=== PATIENT | female | born 1990 | race Caucasian/White ===

== ENCOUNTER → 2020-03-22 13:34 | Outpatient (BNVA) | payer MEDICAID, SELFPAY | PROVIDERS: Family Provider Family Medicine; PCP Family Medicine; Visit Provider Obstetrics & Gynecology | DX: Z34.80 Encounter for supervision of other normal pregnancy, unspecified trimester (principal) | CPT/HCPCS: 80053; 80307; 82950; 84315; 85027; 86592; 86762; 86803; 86850; 86900; 87340; 87806 ==

== ENCOUNTER → 2020-04-12 10:23 | Outpatient (BNVA) | payer MEDICAID, SELFPAY | PROVIDERS: Family Provider Family Medicine; PCP Family Medicine; Visit Provider Obstetrics & Gynecology | DX: O99.013 Anemia complicating pregnancy, third trimester (principal); O99.330 Smoking (tobacco) complicating pregnancy, unspecified trimester; Z04.89 Encounter for examination and observation for other specified reasons | CPT/HCPCS: 84315; 85027 ==

== ENCOUNTER 2020-04-26 11:30 | Observation (INO) | payer MEDICAID, SELFPAY ==
[2020-04-26 11:53] VITALS: BMI 40.4
[2020-04-26 11:58] VITALS: RESP 18; TEMP 37.1
[2020-04-26] MEDS: lactated ringers 1,000 ML 999 ML IV (12:15)
[2020-04-26] MEDS: lactated ringers 1,000 ML 125 ML IV (13:19)
[2020-04-26] MEDS: NIFEdipine 10 mg Capsule 30 MG PO (14:32)
[2020-04-26 15:08] VITALS: RESP 16
[2020-04-26 16:07] VITALS: BP 110/54; PULSE 85
--- NOTE | 2020-04-26 16:34 | PM.PN ---
Subjective Subjective: Interval history: 29-year-old 3 para 0-0-2-0 at 30 weeks and 5 days who presented to labor and delivery from clinic for further evaluation of contractions. She was monitored on labor and delivery and during this time made no cervical change and cervix was closed thick and high but soft. She initially had regular contractions every 2 to 3 minutes with spaced out to every 5 to 7 minutes with IV fluid hydration. As she had persistent contractions despite absence of cervical change was given a single dose of Procardia and with this her contractions spaced out to a few an hour and she felt much better. 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 Follow-up in clinic as scheduled. 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
[2020-04-26 16:37] VITALS: BP 103/54; PULSE 78
--- NOTE | 2020-04-26 16:49 | PM.ACPR ---
Procedure/Consent Procedure Narrative: NONSTRESS TEST: Place of test: [facility] [place]-L&D Indication: 29-year-old 3 para 0-0-2-0 at 30 weeks and 5 days, abdominal pain- labor Date and time of test: 04/26/2020, 3:45 PM. Baseline: 135 Variability: Moderate variability Accelerations: Accelerations present Decelerations: No decelerations Tocometry: Irritability, occasional contractions INTERPRETATION: NST reactive, continue kick counts
[2020-04-26 17:40] VITALS: BP 103/54; PULSE 78; RESP 16; TEMP 37.1; O2SAT 96
--- NOTE | 2020-04-29 10:40 | PC.RESP ---
Smoking Cessation information and a schedule of classes sent to patient.
== END 2020-04-26 17:00 | disposition home or self-care (01) ==
PROVIDERS: Admitting Provider Obstetrics & Gynecology; Family Provider Family Medicine; PCP Family Medicine; Visit Provider Obstetrics & Gynecology
DX: O60.03 Preterm labor without delivery, third trimester (principal); Z3A.30 30 weeks gestation of pregnancy; R10.9 Unspecified abdominal pain
CPT/HCPCS: 12345; 59025; 84315; 99211; G0378; G0379

== ENCOUNTER 2020-05-03 12:48 | Inpatient (IN) | payer MEDICAID, SELFPAY ==
[2020-05-03] VITALS (39 sets, daily range): BP systolic 0–128; BP diastolic 0–76; PULSE 18–105; RESP 18; TEMP 36.7–37.1; O2SAT 96; BMI 40.6
[2020-05-03 13:24] LABS: Actim Prom Positive
[2020-05-03 13:25] LABS: Nitrazine Paper, PH Inconclusive
--- NOTE | 2020-05-03 13:52 | US_ITS ---
WS: [id number] LIMITED OBSTETRICAL ULTRASOUND HISTORY: IVANIA and growth COMPARISON: 04/19/2020, 03/29/2020 Presentation: Breech. Cervix: Poorly visualized. Placenta: Anterior, no previa or abruption. Grade: 1 HEART: FHR of 164 BPM. measurements: BPD = 8.0 cm = 32w0d HC = 29.7 cm = 32w6d AC = 27.1 cm = 31w1d FL = 6.0 cm = 31w2d No amniotic fluid is identified. EFW: 1773 g; 51 %. AGA by ultrasound: 31w6d ANIBAL by ultrasound: 06/29/2020 Appropriate growth compared to the prior ultrasound of 03/29/2020. US/US OB limited [id number] IMPRESSION: 1. Severe oligohydramnios. No amniotic fluid is identified. 2. Normal cardiac activity. 3. Normal growth as compared to the prior ultrasound of 03/29/2020. 4. Cervix is not identified. Cannot exclude cervical insufficiency.
[2020-05-03] MEDS: magnesium sulfate premix 4 GM/100 ML PREMIX IV (14:25)
[2020-05-03] MEDS: betamethasone susp 6 mg/mL 5 mL 12 MG IM (14:25)
[2020-05-03] MEDS: dextrose 5%-lactated ringers 1,000 ML 125 ML IV (14:28)
[2020-05-03] MEDS: magnesium sulfate premix 20 GM/500 ML BAG IV (14:28)
[2020-05-03] MEDS: lactated ringers 1,000 ML 999 ML IV (14:28)
[2020-05-03] MEDS: ampicillin 2,000 MG in sodium chloride 0.9% (plus) 50 ML 100 MG IV (14:29)
[2020-05-03 14:52] LABS: Basophils # 0.1 10^3/uL (0.0-0.1); Basophils % 0.5 %; Eosinophils # 0.2 10^3/uL (0.0-0.8); Eosinophils % 0.9 %; Hematocrit 37.5 % (37.0-47.0); Lymphocytes # 3.1 10^3/uL (0.8-4.8); Lymphocytes % 18.1 %; Mean Corpuscular Hemoglobin 26.8 pg (28.0-34.0); Mean Corpuscular Volume 83.9 fL (81-99); Mean Platelet Volume 10.5 fL (7.4-10.4); Monocytes # 1.1 10^3/uL (0.2-0.9); Monocytes % 6.4 %; Neutrophils # 12.8 10^3/uL (1.8-7.7); Neutrophils % 73.6 %; Nucleated Red Blood Cells % 0 %; Platelet Count 387 10^3/cmm (130-400); Red Blood Count 4.47 10^6/uL (4.1-5.3); Red Cell Distribution Width 15.4 % (12.1-15.1); White Blood Count 17.3 10^3/uL (4.0-10.0)
[2020-05-03] MEDS: nicotine 7 mg Patch 1 PATCH TRANSDERMA (16:59)
--- NOTE | 2020-05-03 17:16 | PM.OBGYHP ---
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 Delgado is a 30-year-old 3 para 0-0-2-0 at 31 weeks and 5 days who presented to labor and delivery on 05/03/2020 with reports of contractions and possibly leaking of fluid. She was seen last week on labor and delivery with reports of contractions-04/26/2020 she was noted to be 1 cm and maria esther regularly but she made no cervical change and contractions resolved with a single dose of Procardia. She states that since then her contractions have been irregular however nothing persistent or severe. She states that this morning she started to have stronger contractions and thought she was leaking fluid since about 10:30 AM. She reached labor and delivery at 1 PM on evaluation she was noted to be ruptured with positive active and PROM. She was noted to be 1 cm, 40% and -3 station. Initially tracing was category 1 however she soon developed variables which did resolve with position change and IV fluid hydration. She states that right now she cannot feel too many contractions but does have some pressure. She denies nausea, vomiting, fever, chills, shortness of breath and chest pain. No other questions or concerns at this time. She does report good movement. No other questions or concerns at this time. Present Details : 3 Para: 0 Review of Systems General: Reports: 10 or more systems reviewed and unremarkable except in HPI and below Const: Denies: fever(s), chills, change in appetite, change in weight, fatigue, malaise or change in sleep pattern Eyes: Denies: change in vision, eye discomfort, eye discharge or seeing flashes ENMT: Denies: throat pain, odynophagia, hoarseness, bleeding gums, ear discharge, nasal discharge or nasal congestion Card: Denies: chest pain, irregular heart rhythm, edema, swelling of feet/ankles, dyspnea on exertion or leg pain with exertion Resp: Denies: dyspnea, productive cough, wheezing or chest congestion GI: Reports: abdominal pain; Denies: nausea, vomiting, heartburn, diarrhea, constipation, change in bowel habits or hematochezia : Denies: flank pain, dysuria, urinary frequency, urinary urgency, urinary incontinence, genital lesions, vaginal odor, vaginal bleeding, vaginal discharge, change in menstrual flow or dyspareunia Musc: Denies: neck pain, joint pain or joint swelling Skin/Breast: Denies: rash, pruritus, breast tenderness, nipple discharge or breast mass Neuro: Denies: headache(s), numbness in extremities or seizure-like activity Psych: Denies: anxiety, depression, mood swings or change in appetite Endo: Denies: cold intolerance, flushing, hot flashes or change in body appearance Yahir/Lymph: Denies: easy bruising, easy bleeding or enlarged lymph nodes All/Imm: Denies: urticaria, tongue swelling, acute wheezing or itchy eyes Medications/Allergies Home Medications Medication Instructions Recorded Confirmed Last Taken Type PNV no.151-iron 27 mg-folic 800 cap PO DAILY cap 03/22/20 04/26/20 Unknown History mcg-omega3 260 tj-mnp-rze-fish capsule elderberry fruit 200 mg capsule mg PO PRN 03/22/20 04/26/20 Unknown History ferrous sulfate 325 mg (65 mg 325 mg PO BID #180 tab 04/12/20 04/26/20 Unknown Rx iron) tablet,delayed release famotidine 20 mg tablet 20 mg PO DAILY #90 tab 04/26/20 04/26/20 Unknown Rx Allergies Allergy/AdvReac Type Severity Reaction Status Date / Time No Known Allergies Allergy Verified 04/26/20 08:54 PFSH 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 This was stopped. No pertinent past medical history Denies history of: Asthma, lung, liver, kidney, heart or thyroid problems, hypercholesterolemia, hypertension, DVT/PE, bleeding or clotting disorders, genital herpes. PCP: None Surgical History S/P laparoscopic procedure (~2014) 04/07/2015-chronic pelvic pain. Hysteroscopy, D&C, diagnostic laparoscopy with biopsy of peritoneum and drainage of paratubal cyst performed by Dr. Avendaño at [facility] [place]. -Findings at time of surgery-normal appendix and ovaries bilaterally, right fallopian tube with a 2 cm paratubal cyst that was drained, cul-de-sac was hemorrhagic with filmy adhesions of the right ovary to the right pelvic sidewall and hemorrhagic and scar tissue in the cul-de-sac which was biopsied-possible endometriosis--- pathology confirmed endometriosis Status post hysteroscopy 04/07/2015 done at time of laparoscopy for evaluation of chronic pelvic pain-on hysteroscopy bilateral ostia visualized with no endometrial pathology. -Pathology of the endometrial curetting showed disordered proliferation. Family History Mother Diabetes Breast cancer diagnosed at age 53 Grandmother Diabetes maternal Heart disease maternal Brain cancer maternal Grandfather Stroke maternal, Family/Other Breast cancer Maternal aunt, diagnosed at age 45 Denies family history of Colon cancer Ovarian cancer Hyperlipidemia Hypertension Uterine cancer Thyroid condition Social History Smoking and tobacco status: current every day smoker Alcohol intake: unknown Additional social history: - Tobacco Use: Started smoking in 2006 and has smoked up to 2 packs per day. Started cutting back when she became and would like to quit. Currently smokes up to 1/2 pack per day. Alcohol Use: Drinks an alcoholic beverage once yearly on average. Denies alcohol Use since becoming . 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 Other Female Reproductive History: Menstrual History Comment: Menarche at age 12 with a cycle length of 28 days and a bleeding duration of 5-7 days. Sexual History: Sexual History Comment: Coitarche at age 15, less than 5 lifetime partners, has been with her current partner her Farshad since 2007. He is currently not working because of coronavirus. STD History Comment: Denies history of sexually transmitted diseases. Contraception: Contraception History Comment: Reports history of oral contraceptive use and depo provera use in the past. She is not quite sure what she wants to use for contraception History History History 3 Term 0 Miscarriages/Ectopic 2 0 Living Children 0 Other History: 3 Para 3020; SAB x 2 1----2007---->First trimester SAB; no D & C required. 2----2007---->First trimester SAB; no D & C required. 3-------->Current . Care ANIBAL Calculator Estimated Delivery Date Method Current WG Current Estimate 06/30/20 LMP (Certain) 31w 5d Expected Delivery Route/Plan Vaginal Specific Issues/Plans Transfer of care at 25 weeks with limited care prior Tobacco use in Anemia in -third trimester Absent nasal bone-NIPT pending pyelectasis-resolved Vitals/I&O/Wt Last Vital Signs Temp 98.8 F 05/03/20 12:56 Pulse 93 05/03/20 17:11 BP 109/64 05/03/20 17:11 Weight last 48 hrs Weight 222 lb Physical Exam Narrative: EXAM NARRATIVE: General: well developed, well nourished, obese Neuro/Psych: alert, oriented to time, place and person. Neck: No thyromegaly Heart: S1-S2 heard, regular rate and rhythm. Lungs: Clear to auscultation bilaterally. Breast: Deferred Abdomen: Soft, gravid, nontender, no rebound, no guarding, no hepatosplenomegaly, no umbilical hernia Legs: No pedal edema no calf tenderness. Negative Homans sign Back: No CVA tenderness Skin: Normal over abdomen, stretch gonzalez noted External genitalia: Appears normal, no lesions, shaved hair Urethral meatus: Normal size, normal location Urethra: Nontender, no masses Bladder: Nontender Vagina: Appears normal, normal estrogen, no lesion, grossly ruptured, positive nitrazine, positive ferning, positive pooling, clear fluid Cervix: Appears normal, no CMT, no discharge, 1 cm, 50% and -4 by RN Uterus: Gravid Adnexa: nonpalpable Perineum/anus: Intact Rectum: Deferred Data : 05/03/20 13:50 A&P Assessment and plan (1) Abnormal ultrasound: Status: Acute (2) Anemia affecting in third trimester: Status: Acute (3) Tobacco use affecting , antepartum: Status: Acute (4) Supervision of other normal , antepartum: Status: Acute (5) premature rupture of membranes: - premature rupture of membranes at 31 weeks and 5 days. I discussed with Ms. Delgado and her partner that given this I am recommending transfer to [place] for prolonged monitoring as antepartum because we do not have the NICU facilities needed here. I discussed with her that I would recommend magnesium sulfate, ampicillin and erythromycin for GBS prophylaxis and to prolong latency as well as steroids for lung maturity. Each of these interventions was discussed with patient in detail and reasoning behind this was reviewed. All her questions were answered to her satisfaction. -Magnesium sulfate for neuro protection -Ampicillin and erythromycin for latency -Betamethasone for lung maturity -CBC, GBS, urine culture, GC and chlamydia done today -Active PROM done was positive -Continuous monitoring and patient n.p.o. for now -Sonogram to assess growth and presentation - tracing was largely category 1 except for areas of variable deceleration that was positional and resolved with position changes. We will continue to monitor and ensure that she is not making any cervical change and once tracing is remain category 1 and cervix is noted to not make any further cervical change we will consider her stable and work towards transfer to [place]. Status: Acute Attestations Medical Necessity Statement*: . 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
--- NOTE | 2020-05-03 18:20 | P.TS_ITS ---
Transfer Summary Providers Date of Admission: 05/03/20 12:48 Date of Discharge: 05/03/20 Attending Provider at Admission: Jaimie Evans MD Attending Provider at Transfer: Jaimie Evans MD Transfering Provider (if different): Timothy Vegas Primary Care Provider: Bryan Marsh MD Anticipated Date of Transfer: Anticipated date of transfer: 05/03/20 Receiving Facility & Provider: Receiving Provider: Dr. Valadez Receiving facility: [place], [place] Diagnoses at Discharge Discharge Diagnosis (1) Abnormal ultrasound: Status: Acute (2) Anemia affecting in third trimester: Status: Acute (3) Tobacco use affecting , antepartum: Status: Acute (4) Supervision of other normal , antepartum: Status: Acute (5) premature rupture of membranes: Status: Acute Reason for Visit Reason for Visit: Leaking Fluid Hospital Course Hospital Course: Patient presented to L&D at 12:35 on 05/03/2020 with complaint of leaking fluid. She was found to be grossly ruptured. Speculum exam confirmed leaking fluid with pooling seen and fluid leaking from the cervix. She was 1 cm dilated. Initially she was having variable decelerations which corrected themselves following fluid hydration. She was also having sporadic contractions initially, which are now infrequent. She has continued to have sporadic variable decelerations. heart rate monitoring shows a baseline heart rate in the 130s with moderate variability and accelerations present. The accelerations do meet criteria for reactivity. Ultrasound was performed which showed breech presentation with minimal fluid present. She was started on ampicillin IV and erythromycin oral. She was started on magnesium sulfate for neuro protection. She has received first dose of betamethasone. Patient initially evaluated and managed by Dr. Avendaño. I took over care at 17:00 today and made arrangements for transfer. Betamethasone 12 mg IM given at 13:58 Ampicillin 2 g IV at 14:29 Erythromycin 250 mg oral at 16:52 Magnesium sulfate 4 g load IV started at 14:25 and currently at 2 g/h. At this point, patient appears stable for transfer. Per patient request, [facility] has been contacted regarding transfer due to prematurity and rupture membranes. Dr. Valadez has accepted transfer. TS Data Data Completed and Pending: Completed Studies During Hospitalization Category Date Time Status US OB limited 768 15 Stat Ultrasound 05/03/20 13:52 Completed Pending at discharge Category Date Time Status Chlamydia / Gonor luci Panel Stat Lab 05/03/20 12:45 Received Group B Streptoco ccus Culture Stat Lab 05/03/20 15:45 Received Magnesium Level ( OB Only) Q6H Lab 05/03/20 20:00 Ordered Urine Culture Sta t Lab 05/03/20 12:45 Received Labs from last 24 hours 05/03/20 05/03/20 05/03/20 13:50 13:50 13:10 WBC 17.3 H RBC 4.47 Hgb 12.0 Hct 37.5 MCV 83.9 MCH 26.8 L MCHC 32.0 RDW 15.4 H Plt Count 387 MPV 10.5 H Neut % (Auto) 73.6 Lymph % (Auto) 18.1 [place] % (Auto) 6.4 Eos % (Auto) 0.9 Baso % (Auto) 0.5 Neut # (Auto) 12.8 H Lymph # (Auto) 3.1 [place] # (Auto) 1.1 H Eos # (Auto) 0.2 Baso # (Auto) 0.1 Nucleated RBC % (a uto) 0 Nucleated RBCs # 0.0 Insulin-like GF I Positive Blood Type O Positive Rho(D) Type Positive Antibody Screen Negative Vitals: Last Vital Signs Temp 98.8 F 05/03/20 12:56 Pulse 97 05/03/20 18:10 BP 106/60 05/03/20 18:10 TS Medications Medications Home Medications PNV no.151-iron 27 mg-folic 800 mcg-omega3 260 nl-ttm-wrt-fish capsule cap PO DAILY cap 03/22/20 [History Confirmed 04/26/20] elderberry fruit 200 mg capsule mg PO PRN 03/22/20 [History Confirmed 04/26/20] ferrous sulfate 325 mg (65 mg iron) tablet,delayed release 325 mg PO BID #180 tab 04/12/20 [Rx Confirmed 04/26/20] famotidine 20 mg tablet 20 mg PO DAILY #90 tab 04/26/20 [Rx Confirmed 04/26/20] Active Medications Acetaminophen (Tylenol) 650 mg PO Q6H PRN PRN Reason: Mild pain or temp > 100.4 Al Hydrox/Mg Hydrox/Simethicone (Maalox) 30 ml PO Q4H PRN PRN Reason: INDIGESTION Calcium Gluconate (Calcium Gluconate) 1 gm IVP ONCE PRN PRN Reason: Reversal of Magnesium Sulfate Carboprost Tromethamine (Hemabate) 250 mcg IM ONCE PRN PRN Reason: 3rd line bleeding Ephedrine Sulfate (Ephedrine) 10 mg IVP Q3M PRN PRN Reason: hypotension as directed by Hydroxyzine Pamoate (Vistaril) 50 mg PO QID PRN PRN Reason: sleep, agitation or itching Dextrose/Lactated Ringer's (Dextrose 5%-Lactated Ringers) 1,000 mls @ 125 mls/hr IV .Q8H [facility] Last Admin: 05/03/20 14:28 Dose: 125 mls/hr Documented by: Oxytocin (Pitocin) 30 unit in 500 mls @ 600 mls/hr IV .Q50M PRN; Protocol PRN Reason: After delivery of infant Magnesium Sulfate (Magnesium Sulfate Premix) 20 gm in 500 mls @ 50 mls/hr IV .Q10H [facility] Last Admin: 05/03/20 14:28 Dose: 50 mls/hr Documented by: Lactated Ringer's (Lactated Ringers) 1,000 mls @ 999 mls/hr IV .Q1H1M PRN PRN Reason: BLEEDING Lactated Ringer's (Lactated Ringers) 1,000 mls @ 999 mls/hr IV .Q1H1M PRN PRN Reason: Per L&D Rescitation Protocol Last Admin: 05/03/20 14:28 Dose: 999 mls/hr Documented by: Tranexamic Acid 1,000 mg/ (Sodium Chloride) 110 mls @ 330 mls/hr IV Q30M PRN PRN Reason: BLEEDING Ampicillin Sodium 1,000 mg/ (Sodium Chloride) 50 mls @ 100 mls/hr IV Q4H [facility]; Protocol Ampicillin Sodium 2,000 mg/ (Sodium Chloride) 50 mls @ 100 mls/hr IV ONCE [facility]; Protocol Last Admin: 05/03/20 14:29 Dose: 100 mls/hr Documented by: Lidocaine HCl (Lidocaine 2%) 0 ml INJECTION ONCE PRN PRN Reason: perineum repair after delivery Lidocaine HCl (Lidocaine 1%) 0.1 ml INTRADERMA PRN PRN PRN Reason: Anesthetic Prior to IV start Methylergonovine Maleate (Methergine) 0.2 mg IM Q20M PRN PRN Reason: 2nd line bleeding Metoclopramide HCl (Reglan) 10 mg IV ONCE PRN PRN Reason: N/V not relieved by zofran Misoprostol (Cytotec) 800 mcg IN ONCE PRN PRN Reason: 1st line bleeding Nicotine (Nicoderm 7 Mg Patch) 1 patch TRANSDERMA DAILY CARLOS Last Admin: 05/03/20 16:59 Dose: 1 patch Documented by: Ondansetron HCl (Zofran) 4 mg IVP Q4H PRN PRN Reason: NAUSEA AND VOMITING Oxytocin (Pitocin) 20 unit IM ONCE PRN PRN Reason: 4th line bleeding Oxytocin (Pitocin) 20 unit IV ONCE PRN PRN Reason: 4th line bleeding Discharge Plan Discharge Patient Disposition: Xfer Short-Term Hosp Condition: Stable Prescriptions: Continued Multi-DHA(with vit K) 27 mg iron-800 mcg-260 mg capsule PO DAILY RF: 0 ferrous sulfate 325 mg (65 mg iron) tablet,delayed release (DR/EC) 325 mg PO BID Qty: 180 RF: 2 famotidine [Pepcid] 20 mg tablet 20 mg PO DAILY Qty: 90 RF: 0 Discontinued elderberry fruit 200 mg capsule PO PRNRF: 0 Discharge Orders: Transfer Out of Facility (Order); Ordered 05/03/20 Ordered By: Timothy Vegas Transfer Attestations Time Spent in Transfer Care*: less than 30 min Status at Transfer: Cognitive status at transfer: cognitively intact , Behavioral status at transfer: cooperative , Quality Metrics Clinical Quality Measures: During this hospital stay, did patient experience: None Coding Level of Care Code Acute Director Apparel for Chg Fwd Diagnoses Abnormal ultrasound O28.3 Anemia affecting in third trimester O99.013 Tobacco use affecting , antepartum O99.330 Supervision of other normal , antepartum Z34.80 premature rupture of membranes O42.919
[2020-05-03] MEDS: ampicillin 1,000 MG in sodium chloride 0.9% (plus) 50 ML 100 MG IV (19:14)
--- NOTE | 2020-05-03 20:26 | PC.NURSE ---
[facility] CALLED AT 2010 AND NOTIFIED PT HAD LEFT [facility].
== END 2020-05-03 20:08 | disposition short-term general hospital (02) | DRG 833 ==
LOC: OPOB 12:48 → OBGYN 16:22
PROVIDERS: Admitting Provider Obstetrics & Gynecology; Family Provider Family Medicine; PCP Family Medicine; Visit Provider Obstetrics & Gynecology
DX: O42.013 Preterm premature rupture of membranes, onset of labor within 24 hours of rupture, third trimester (principal); Z3A.31 31 weeks gestation of pregnancy; O99.333 Smoking (tobacco) complicating pregnancy, third trimester; F17.210 Nicotine dependence, cigarettes, uncomplicated; O36.8330 Maternal care for abnormalities of the fetal heart rate or rhythm, third trimester, not applicable or unspecified
CPT/HCPCS: 12345; 36415; 51702; 59025; 76815; 83986; 84112; 85025; 86850; 86900; 87081; 87086; 87491; 87591; 99211; J0290; J0702; J3475

== ENCOUNTER 2022-01-12 14:28 | Emergency (ER) | payer BC, MEDICAID, SELFPAY ==
[2022-01-12 14:36] VITALS: BP 127/72; PULSE 85; RESP 16; TEMP 36.8; O2SAT 100; BMI 40.8
[2022-01-12 14:58] LABS: Add Urine Microscopic? NO; Charge for UA Resulting for Rev
--- NOTE | 2022-01-12 15:12 | CTR_ITS ---
PROCEDURE INFORMATION: Exam: CT Abdomen And Pelvis With Contrast Exam date and time: 01/12/2022 3:12 PM Age: 31 years old Clinical indication: Abdominal pain; Localized; Right lower quadrant (rlq); Prior surgery; Surgery date: 6+ months; Surgery type: C section; Additional info: Rlq abd pain, lmp 10 days ago TECHNIQUE: Imaging protocol: Computed tomography of the abdomen and pelvis with contrast. Radiation optimization: All CT scans at this facility use at least one of these dose optimization techniques: automated exposure control; mA and/or kV adjustment per patient size (includes targeted exams where dose is matched to clinical indication); or iterative reconstruction. Contrast material: OMNIPAQUE 300; Contrast volume: 95 ml; Contrast route: INTRAVENOUS (IV); COMPARISON: CT abdomen pelvis w con* [id number] 12/04/2015 10:48 AM RADIATION DOSE METRICS: Total DLP (mGy-cm): 1769.03 FINDINGS: Liver: Elongation of the right hepatic lobe is noted which is likely a normal variant Moi's lobe. No parenchymal lesion is visualized. Gallbladder and bile ducts: Normal. No calcified stones. No ductal dilation. Pancreas: Normal. No ductal dilation. Spleen: Normal. No splenomegaly. Adrenal glands: Normal. No mass. Kidneys and ureters: Tiny renal stones are present in the right right kidney. The kidneys appear otherwise normal. No ureteral stone or hydronephrosis. Stomach and bowel: Mild wall thickening is seen in the sigmoid colon in the region of the right adnexa. Mild surrounding fat stranding is also appreciated. No intestinal obstruction. Appendix: The appendix is normal. Intraperitoneal space: Unremarkable. No free air. No significant fluid collection. Vasculature: Unremarkable. No abdominal aortic aneurysm. Lymph nodes: Unremarkable. No enlarged lymph nodes. Urinary bladder: Unremarkable as visualized. Reproductive: The uterus appears normal. Bilateral ovarian cysts and follicles are noted. Right ovary 2.7 and 2.8 cm hyperdense lesions (hemorrhagic cysts versus endometriomas) are appreciated. Bones/joints: Unremarkable. No acute fracture. Soft tissues: Unremarkable. CT/CT abdomen pelvis w con* [id number] IMPRESSION: 1. Mild colitis, which may be infectious or inflammatory. 2. Indeterminate hyperdense right ovarian lesions, which may be hemorrhagic cysts or possibly endometriomas. Pelvic ultrasound or MRI may allow further assessment.
--- NOTE | 2022-01-12 15:15 | W.ED.ABDPA2 ---
HPI - Abdominal Pain General: Chief Complaint: Abdominal Pain Stated Complaint: sent from urgent care for abdominal pain Time Seen by Provider: 01/12/22 15:04 History of Present Illness: Patient comes in with abdominal pain that started 3 days ago. She describes it as right lower quadrant, sharp, constant, associated with vomiting. She denies fever, diarrhea, cough, congestion, or other cold symptoms. States that her last menstrual cycle was 10 days ago. Associated Symptoms: Denies dysuria, fever(s), nausea and vomiting Related Data: Date of Last Menstrual Period: 01/05/22 Review of Systems Const: Denies: fever(s) or body aches Eyes: Denies: change in vision or blurry vision ENMT: Denies: throat pain or odynophagia Card: Denies: chest pain or palpitations Resp: Denies: dyspnea or productive cough GI: Reports: abdominal pain; Denies: nausea or vomiting : Denies: flank pain or dysuria Musc: Denies: neck pain or back pain Skin/Breast: Denies: rash or pruritus Neuro: Denies: headache(s) or numbness in extremities Psych: Denies: anxiety or change in appetite Endo: Denies: polyuria or excessive sweating PFSH ED PFSH: Medical History (Updated 01/12/22 @ 17:52 by Kevin Hart MD) Endometriosis -Diagnosis confirmed by peritoneal biopsy showing endometriosis in 03/2015 -Tried Depo-Provera on 05/19/2015 however cause worsening pain symptoms and depression. This was stopped. No pertinent past medical history Denies history of: Asthma, lung, liver, kidney, heart or thyroid problems, hypercholesterolemia, hypertension, DVT/PE, bleeding or clotting disorders, genital herpes. PCP: None Surgical History S/P laparoscopic procedure (~2014) 04/07/2015-chronic pelvic pain. Hysteroscopy, D&C, diagnostic laparoscopy with biopsy of peritoneum and drainage of paratubal [place] [facility] [place]Findings at time of surgery-normal appendix and ovaries bilaterally, right fallopian tube with a 2 cm paratubal cyst that was drained, cul-de-sac was hemorrhagic with filmy adhesions of the right ovary to the right pelvic sidewall and hemorrhagic and scar tissue in the cul-de-sac which was biopsied-possible endometriosis--- pathology confirmed endometriosis Status post hysteroscopy 04/07/2015 done at time of laparoscopy for evaluation of chronic pelvic pain-on hysteroscopy bilateral ostia visualized with no endometrial pathology. -Pathology of the endometrial curetting showed disordered proliferation. Family History Mother Diabetes Breast cancer diagnosed at age 53 Grandmother Diabetes maternal Heart disease maternal Brain cancer maternal Grandfather Stroke maternal, Family/Other Breast cancer Maternal aunt, diagnosed at age 45 Denies family history of Colon cancer Ovarian cancer Hyperlipidemia Hypertension Uterine cancer Thyroid condition Social History Smoking and tobacco status: current every day smoker Alcohol intake: unknown Additional social history: - Tobacco Use: Started smoking in 2006 and has smoked up to 2 packs per day. Started cutting back when she became and would like to quit. Currently smokes up to 1/2 pack per day. Alcohol Use: Drinks an alcoholic beverage once yearly on average. Denies alcohol Use since becoming . 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 Female Reproductive History: Date of last menstrual period: 01/05/22 Physical Exam Const: COMMON NORMALS: no acute distress, patient oriented x3, healthy appearing and alert HENMT: COMMON NORMALS: normocephalic and atraumatic HEAD & SCALP: normocephalic and atraumatic Eye: COMMON NORMALS: Equal, round and reactive pupils present and EOMs intact bilaterally PUPIL: Yes Equal, round and reactive pupils present Neck/C-Spine: COMMON NORMALS: full ROM and supple Resp: COMMON NORMALS: normal respiratory effort, No retractions and No use of accessory muscles Cardio: COMMON NORMALS: regular rate and regular rhythm RATE: regular rate RHYTHM: regular rhythm GI: INSPECTION: No abdominal distension PALPATION: Yes Tenderness to palpation present (GI) Details: RLQ and Yes Rebound tenderness present Back/Pelvis: COMMON NORMALS: thoracic and lumbar spine normal to inspection and no thoracic nor lumbar tenderness Extremity: COMMON NORMALS: normal to inspection and full ROM Neuro: COMMON NORMALS: patient oriented x3 SENSORIUM/ORIENTATION: Yes alert Psych: COMMON NORMALS: mental status grossly normal and cooperative Skin: COMMON NORMALS: no rashes or lesions noted and no wounds GENERAL SKIN EXAM: no rashes or lesions noted Course Vital Signs: Vital signs: Vital Signs Temperature 98.1 F 01/12/22 18:12 Pulse Rate 77 01/12/22 18:12 Respiratory Rate 18 01/12/22 18:12 Blood Pressure 117/70 01/12/22 18:12 Pulse Oximetry 97 01/12/22 18:12 MDM - Abdominal Pain Medical Decision Making Patient comes in with abdominal pain that started 3 days ago. She describes it as right lower quadrant, sharp, constant, associated with vomiting. She denies fever, diarrhea, cough, congestion, or other cold symptoms. States that her last menstrual cycle was 10 days ago. On physical exam she has right lower quadrant tenderness to palpation with rebound. Will check labs, CT, give IV fluids, and reassess. On reassessment I talked to the pt about the test results. Will have her follow up with her PCP or OB for an ultrasound to re assess her right ovarian cysts. Will d/c home at this time with precautions to return for worsening or changing symptoms. Lab Data : 01/12/22 15:37 01/12/22 16:05 Labs/Radiology: Radiology Impressions Abdomen/Pelvis CT 01/12/22 15:12 IMPRESSION: 1. Mild colitis, which may be infectious or inflammatory. 2. Indeterminate hyperdense right ovarian lesions, which may be hemorrhagic cysts or possibly endometriomas. Pelvic ultrasound or MRI may allow further assessment. Laboratory Results WBC 10.4 10^3/uL (4.0-10.0) H 01/12/22 15:37 RBC 5.94 10^6/uL (4.1-5.3) H 01/12/22 15:37 Hgb 15.5 g/dL (11.5-15.3) H 01/12/22 15:37 Hct 49.0 % (37.0-47.0) H 01/12/22 15:37 MCV 82.5 fl (81-99) 01/12/22 15:37 MCH 26.1 pg (28.0-34.0) L 01/12/22 15:37 MCHC 31.6 g/dL (30.0-36.0) 01/12/22 15:37 RDW 16.4 % (12.1-15.1) H 01/12/22 15:37 Plt Count 292 10^3/cmm (130-400) 01/12/22 15:37 MPV 9.7 fL (7.4-10.4) 01/12/22 15:37 Neut % (Auto) 60.0 % 01/12/22 15:37 Lymph % (Auto) 29.8 % 01/12/22 15:37 [place] % (Auto) 7.1 % 01/12/22 15:37 Eos % (Auto) 1.7 % 01/12/22 15:37 Baso % (Auto) 1.2 % 01/12/22 15:37 Neut # (Auto) 6.26 10^3/uL (1.8-7.7) 01/12/22 15:37 Lymph # (Auto) 3.1 10^3/uL (0.8-4.8) 01/12/22 15:37 [place] # (Auto) 0.7 10^3/uL (0.2-0.9) 01/12/22 15:37 Eos # (Auto) 0.2 10^3/uL (0.0-0.8) 01/12/22 15:37 Baso # (Auto) 0.1 10^3/uL (0.0-0.1) 01/12/22 15:37 Nucleated RBC % (auto) 0 % 01/12/22 15:37 Nucleated RBCs # 0.0 /100WBC 01/12/22 15:37 Sodium 138 mmol/L (136-145) 01/12/22 16:05 Potassium 4.1 mmol/L (3.5-5.1) 01/12/22 16:05 Chloride 103 mmol/L (98-107) 01/12/22 16:05 Carbon Dioxide 25 mmol/L (22-29) 01/12/22 16:05 Anion Gap 14.1 (5-19) 01/12/22 16:05 BUN 13 mg/dL (6-20) 01/12/22 16:05 Creatinine 0.6 mg/dL (0.5-0.9) 01/12/22 16:05 GFR Calculation 115.9 mL/min (90-130) 01/12/22 16:05 Glucose 83 mg/dL (65-115) 01/12/22 16:05 Calculated Osmolality 285 mOsm/kg (285-295) 01/12/22 16:05 Calcium 9.2 mg/dL (8.5-10.5) 01/12/22 16:05 Total Bilirubin 0.3 mg/dL (0.15-1.2) 01/12/22 16:05 AST 11 U/L (0-32) 01/12/22 16:05 ALT 19 U/L (0-33) 01/12/22 16:05 Alkaline Phosphatase 71 IU/L (35-105) 01/12/22 16:05 Total Protein 6.7 g/dL (6.6-8.7) 01/12/22 16:05 Albumin 4.2 g/dL (3.5-5.2) 01/12/22 16:05 Globulin 2.5 g/dL (1.3-4.6) 01/12/22 16:05 Lipase 17 U/L (13-60) 01/12/22 16:05 HCG, Qual Negative (Negative) 01/12/22 14:45 Urine Color Straw (Yellow) 01/12/22 14:45 Urine Appearance Clear (CLEAR) 01/12/22 14:45 Urine pH 6 (5-7) 01/12/22 14:45 Ur Specific [place] 1.015 (1.005-1.030) 01/12/22 14:45 Urine Protein Neg (Negative) 01/12/22 14:45 Urine Glucose (UA) Norm (Normal) 01/12/22 14:45 Urine Ketones Negative (Negative) 01/12/22 14:45 Urine Blood Neg (Negative) 01/12/22 14:45 Urine Nitrate Negative (Negative) 01/12/22 14:45 Urine Bilirubin Neg (Negative) 01/12/22 14:45 Urine Urobilinogen Norm mg/dL (Negative) 01/12/22 14:45 Ur Leukocyte Esterase Negative (Negative) 01/12/22 14:45 Discharge Plan Discharge Patient Disposition: Home Clinical Impression: Hemorrhagic cyst of right ovary Condition: Stable Prescriptions: New hydrocodone-acetaminophen 5-325 mg tablet 1 tab PO Q6H PRN (Reason: pain) Qty: 12 0RF No Action Tylenol 325 mg Tablet 325 mg PO QID PRN (Reason: Pain) 0RF Advil 200 mg Tablet 200 mg PO Q6H PRN (Reason: Pain) 0RF Discharge Orders: Discharge ED (Routine); Ordered 01/12/22 Ordered By: Kevin Hart Referrals: Bryan Marsh MD [Primary Care Provider] - Patient Instructions: Opioid Safety Coding Level of Care Code ED Chiropractic Teacher for Chg Fwd Exam Comprehensive
[2022-01-12 15:18] LABS: Bilirubin Urine Neg (Negative); Blood Urine Neg (Negative); Glucose Urine UA Norm (Normal); Ketones Urine Negative (Negative); Leukocyte Esterase Urine Negative (Negative); Nitrate Urine Negative (Negative); Protein Urine Neg (Negative); Specific Gravity, Urine 1.015 (1.005-1.030); Urine Appearance Clear (CLEAR); Urine Color Straw (Yellow); Urobilinogen Urine Norm (Negative); pH Urine 6 (5-7)
[2022-01-12] MEDS: sodium chloride 0.9% 1,000 ML 999 ML IV (15:36)
[2022-01-12 15:50] LABS: Basophils # 0.1 10^3/uL (0.0-0.1); Basophils % 1.2 %; Eosinophils # 0.2 10^3/uL (0.0-0.8); Eosinophils % 1.7 %; Hemoglobin 15.5 g/dL (11.5-15.3); Lymphocytes # 3.1 10^3/uL (0.8-4.8); Lymphocytes % 29.8 %; Mean Corpuscular HGB Conc 31.6 g/dL (30.0-36.0); Mean Corpuscular Hemoglobin 26.1 pg (28.0-34.0); Mean Corpuscular Volume 82.5 fl (81-99); Mean Platelet Volume 9.7 fL (7.4-10.4); Monocytes # 0.7 10^3/uL (0.2-0.9); Monocytes % 7.1 %; Neutrophils # 6.26 10^3/uL (1.8-7.7); Nucleated Red Blood Cells % 0 %; Platelet Count 292 10^3/cmm (130-400); Red Blood Count 5.94 10^6/uL (4.1-5.3); Red Cell Distribution Width 16.4 % (12.1-15.1); White Blood Count 10.4 10^3/uL (4.0-10.0)
[2022-01-12 16:34] LABS: Alanine Aminotransferase 19 U/L (0-33); Albumin Level 4.2 g/dL (3.5-5.2); Alkaline Phosphatase 71 IU/L (35-105); Anion Gap 14.1 (5-19); Aspartate Amino Transferase 11 U/L (0-32); Blood Urea Nitrogen 13 mg/dL (6-20); Calcium 9.2 mg/dL (8.5-10.5); Carbon Dioxide 25 mmol/L (22-29); Chloride 103 mmol/L (98-107); Creatinine Clr Calc Pharmacy 149.8559; Globulin 2.5 g/dL (1.3-4.6); Glomerular Filtration Rate 115.9 mL/min (90-130); Glucose 83 mg/dL (65-115); Lipase 17 U/L (13-60); Osmolality Calculated 285 mOsm/kg (285-295); Potassium 4.1 mmol/L (3.5-5.1); Sodium 138 mmol/L (136-145); Total Bilirubin 0.3 mg/dL (0.15-1.2); Total Protein 6.7 g/dL (6.6-8.7)
[2022-01-12 16:48] LABS: HCG Qualitative Urine. Negative (Negative)
[2022-01-12] MEDS: iohexol 300 mg/mL 100 mL Btl IV (16:59)
--- NOTE | 2022-01-12 17:21 | PC.NURSE ---
patient in no obvious distress. patient unhooked from fluids and ambulatory to restroom with no difficulties. patient informed of wait for CT scan results. patient denies questions/concerns .
[2022-01-12 18:11] VITALS: BP 117/70; PULSE 77; RESP 18; TEMP 36.7; O2SAT 98
[2022-01-12 18:12] VITALS: BP 117/70; PULSE 77; RESP 18; TEMP 36.7; O2SAT 97
== END 2022-01-12 18:14 | disposition home or self-care (01) ==
PROVIDERS: Nurse Practitioner Family; Emergency Provider Emergency Medicine; PCP Family Medicine
DX: N83.201 Unspecified ovarian cyst, right side (principal); F17.210 Nicotine dependence, cigarettes, uncomplicated
CPT/HCPCS: 74177; 80053; 81003; 81025; 83690; 85025; 96360; 99283; J7030; Q9967

== ENCOUNTER 2022-05-22 09:55 | Emergency (ER) | payer MEDICAID, SELFPAY ==
[2022-05-22 10:29] VITALS: BP 128/80; PULSE 64; RESP 13; TEMP 37; O2SAT 97; BMI 40.6
--- NOTE | 2022-05-22 11:56 | ED_ITS ---
HPI - Dizziness General: Chief Complaint: Dizziness Stated Complaint: dizzy Time Seen by Provider: 05/22/22 11:21 Source: patient Mode of arrival: ambulatory Limitations: no limitations History of Present Illness: HPI Narrative: Patient is a 32-year-old female who presents to ED today with a complaint of a episode yesterday evening while driving home from work in [place] where she felt dizzy and weak. Patient states she was still able to continue driving and make it to a gas station here in town. Patient states the dizziness seemed to be worse with head movements. She states she was able to make it home. She states she applied a finger pulse ox when she got home and it reported her heart rate was anywhere from 60-160. Patient states she never had chest pain, shortness of breath, difficulty breathing, sensation of heart racing, or palpitations. Patient states she was still able to ambulate with the dizziness. She states she was able to sleep and did sleep all night. She states when she woke up this morning the dizziness had improved but she still felt weak. She is reporting a very minor headache (12/04). No visual changes. No ear pain, tinnitus, hearing loss. Patient states her only medication is a multivitamin. No known significant PMH. Patient denies any numbness, tingling, loss of sensation to her face or extremities. She is not having any slurred speech or difficulty speaking. No drug/etoh use. MD elicited complaint: dizziness Onset (ago): hour(s) Timing: gradual onset Description: sense of movement Associated symptoms: Reports headache(s); Denies change in hearing, chest pain, chills, ear discharge, malaise, nausea, palpitations, syncope, tinnitus or vomiting Associated neuro symptoms: Deny confusion or numbness in extremities Stroke scale total: 0 Review of Systems Const: Denies: fever(s), chills, body aches, fatigue or malaise Eyes: Denies: change in vision, blurry vision, blind spots, photophobia, floaters or seeing flashes ENMT: Denies: ear or mastoid pain, ear discharge, change in hearing, tinnitus or disequilibrium Card: Denies: chest pain, palpitations, irregular heart rhythm, edema, swelling of feet/ankles, lightheadedness, syncope, pre-syncope or dyspnea on exertion Resp: Denies: dyspnea, productive cough, non-productive cough or pain on inspiration GI: Denies: abdominal pain, nausea, vomiting, heartburn or diarrhea : Denies: flank pain or dysuria Musc: Denies: neck pain, back pain, extremity pain or joint pain Skin/Breast: Denies: rash Neuro: Reports: headache(s) and dizziness; Denies: numbness in extremities, weakness in extremities, sensory changes, lack of coordination, difficulty walking, frequent falls, confusion, behavioral changes, Slurred speech present, difficulty communicating thoughts or seizure- like activity PFSH ED PFSH: Medical History (Updated 05/22/22 @ 13:25 by ISH Chu) Endometriosis -Diagnosis confirmed by peritoneal biopsy showing endometriosis in 03/2015 -Tried Depo-Provera on 05/19/2015 however cause worsening pain symptoms and depression. This was stopped. No pertinent past medical history Denies history of: Asthma, lung, liver, kidney, heart or thyroid problems, hypercholesterolemia, hypertension, DVT/PE, bleeding or clotting disorders, genital herpes. PCP: None Surgical History S/P laparoscopic procedure (~2014) 04/07/2015-chronic pelvic pain. Hysteroscopy, D&C, diagnostic laparoscopy with biopsy of peritoneum and drainage of parat[place] [facility] [place]Findings at time of surgery-normal appendix and ovaries bilaterally, right fallopian tube with a 2 cm paratubal cyst that was drained, cul-de-sac was hemorrhagic with filmy adhesions of the right ovary to the right pelvic sidewall and hemorrhagic and scar tissue in the cul-de-sac which was biopsied-possible endometriosis--- pathology confirmed endometriosis Status post hysteroscopy 04/07/2015 done at time of laparoscopy for evaluation of chronic pelvic pain- on hysteroscopy bilateral ostia visualized with no endometrial pathology. -Pathology of the endometrial curetting showed disordered proliferation. Family History Mother Diabetes Breast cancer diagnosed at age 53 Grandmother Diabetes maternal Heart disease maternal Brain cancer maternal Grandfather Stroke maternal, Family/Other Breast cancer Maternal aunt, diagnosed at age 45 Denies family history of Colon cancer Ovarian cancer Hyperlipidemia Hypertension Uterine cancer Thyroid condition Social History (Reviewed 05/22/22 @ 12:38 by JERSON Chu Smoking and tobacco status: current every day smoker Alcohol intake: unknown Additional social history: - Tobacco Use: Started smoking in 2006 and has smoked up to 2 packs per day. Started cutting back when she became and would like to quit. Currently smokes up to 1/2 pack per day. Alcohol Use: Drinks an alcoholic beverage once yearly on average. Denies alcohol Use since becoming . 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 Female Reproductive History: Date of last menstrual period: 01/05/22 Physical Exam Const: COMMON NORMALS: no acute distress, patient oriented x3, no limitations and alert GENERAL APPEARANCE: cooperative NUTRITIONAL APPEARANCE: overweight ORIENTATION/CONSCIOUSNESS: Yes awake, Yes oriented to person, Yes oriented to place and Yes oriented to time HENMT: COMMON NORMALS: normocephalic, atraumatic, hearing grossly normal bilaterally, external ears normal, EAC's normal and TM's normal bilaterally HEAD & SCALP: normal to inspection, normocephalic and atraumatic FACE & SINUS: normal facial exam EXTERNAL EAR: Yes external ears normal EXTERNAL AUDITORY CANAL: EAC's normal TYMPANIC MEMBRANE: TM's normal bilaterally Eye: COMMON NORMALS: Equal, round and reactive pupils present and EOMs intact bilaterally GENERAL EYE: appearance normal, both eyes and all related structures and normal light reflex VISUAL ACUITY: Yes acuity normal PUPIL: Yes Equal, round and reactive pupils present DIRECT OPHTHALMOSCOPY: Yes normal light reflex Neck/C-Spine: COMMON NORMALS: full ROM, no lymphadenopathy and no meningeal signs Resp: COMMON NORMALS: normal respiratory effort and clear to auscultation bilaterally AUSCULTATION: clear to auscultation bilaterally Cardio: COMMON NORMALS: regular rate and regular rhythm RATE: regular rate RHYTHM: regular rhythm Extremity: COMMON NORMALS: normal to inspection GENERAL: Yes normal exam except as noted Neuro: NORA COMA SCALE: document GCS findings [place] coma scale eye opening: Spontaneous Nora coma scale verbal response: Orientated [place] coma scale motor response: Obey commands [place] coma scale total score: 15 COMMON NORMALS: patient oriented x3, CN's II-XII intact bilaterally, moves all extr emities, no focal motor deficits, no sensory deficits noted and gait normal SENSORIUM/ORIENTATION: Yes alert, Yes oriented to person, Yes oriented to place and Yes oriented to time MENINGEAL SIGNS: Yes no meningeal signs COORDINATION/BALANCE: [id number] test normal SPEECH: speech normal GAIT: Yes Normal gait present MOTOR EXAM: 5/5 motor strength present throughout COORDINATION: [id number] test normal Skin: COMMON NORMALS: no rashes or lesions noted GENERAL SKIN EXAM: no rashes or lesions noted Course Vital Signs: Vital signs: Vital Signs Temperature 98.6 F 05/22/22 10:29 Pulse Rate 64 05/22/22 10:29 Respiratory Rate 13 05/22/22 10:29 Blood Pressure 128/80 05/22/22 10:29 Pulse Oximetry 97 05/22/22 10:29 [facility] - Dizziness Medical Decision Making Patient here with a complaint of nonspecific dizziness and weakness. Dizziness does not seem to affect ambulation and she has continue to drive normally. Given her history and physical exam as well as lack of any neurologic complaints-I would have no suspicion for a central cause of dizziness/vertigo. Patient's vital signs are normal. Her blood work is fairly unremarkable. EKG showing sinus bradycardia at 57. She does state a normal pulse for her is in the low 60s so this does not seem to be the etiology for her dizziness. She do es states she has a primary care appointment on Saturday that she can use for further follow-up. Return to ED precautions were discussed. Lab Data : 05/22/22 12:25 05/22/22 12:25 Laboratory Results WBC 10.1 10^3/uL (4.0-10.0) H 05/22/22 12:25 RBC 5.88 10^6/uL (4.1-5.3) H 05/22/22 12:25 Hgb 15.6 g/dL (11.5-15.3) H 05/22/22 12:25 Hct 47.1 % (37.0-47.0) H 05/22/22 12:25 MCV 80.1 fl (81-99) L 05/22/22 12:25 MCH 26.5 pg (28.0-34.0) L 05/22/22 12:25 MCHC 33.1 g/dL (30.0-36.0) 05/22/22 12:25 RDW 14.5 % (12.1-15.1) 05/22/22 12:25 Plt Count 287 10^3/cmm (130-400) 05/22/22 12:25 MPV 9.8 fL (7.4-10.4) 05/22/22 12:25 Neut % (Auto) 61.9 % 05/22/22 12:25 Lymph % (Auto) 29.4 % 05/22/22 12:25 [place] % (Auto) 5.9 % 05/22/22 12:25 Eos % (Auto) 1.5 % 05/22/22 12:25 Baso % (Auto) 1.1 % 05/22/22 12:25 Neut # (Auto) 6.24 10^3/uL (1.8-7.7) 05/22/22 12:25 Lymph # (Auto) 3.0 10^3/uL (0.8-4.8) 05/22/22 12:25 [place] # (Auto) 0.6 10^3/uL (0.2-0.9) 05/22/22 12:25 Eos # (Auto) 0.2 10^3/uL (0.0-0.8) 05/22/22 12:25 Baso # (Auto) 0.1 10^3/uL (0.0-0.1) 05/22/22 12:25 Nucleated RBC % (auto) 0 % 05/22/22 12:25 Nucleated RBCs # 0.0 /100WBC 05/22/22 12:25 Sodium 134 mmol/L (136-145) L 05/22/22 12:25 Potassium 4.2 mmol/L (3.5-5.1) 05/22/22 12:25 Chloride 103 mmol/L (98-107) 05/22/22 12:25 Carbon Dioxide 22 mmol/L (22-29) 05/22/22 12:25 Anion Gap 13.2 (5-19) 05/22/22 12:25 BUN 9 mg/dL (6-20) 05/22/22 12:25 Creatinine 0.6 mg/dL (0.5-0.9) 05/22/22 12:25 GFR Calculation 115.1 mL/min (90-130) 05/22/22 12:25 Glucose 81 mg/dL (65-115) 05/22/22 12:25 Calculated Osmolality 276 mOsm/kg (285-295) L 05/22/22 12:25 Calcium 8.9 mg/dL (8.5-10.5) 05/22/22 12:25 Total Bilirubin 0.3 mg/dL (0.15-1.2) 05/22/22 12:25 AST 17 U/L (0-32) 05/22/22 12:25 ALT 26 U/L (0-33) 05/22/22 12:25 Alkaline Phosphatase 63 IU/L (35-105) 05/22/22 12:25 Total Protein 7.4 g/dL (6.6-8.7) 05/22/22 12:25 Albumin 4.2 g/dL (3.5-5.2) 05/22/22 12:25 Globulin 3.2 g/dL (1.3-4.6) 05/22/22 12:25 TSH 2.74 uIU/mL (0.27-4.20) 05/22/22 12:25 HCG, Qual Negative (Negative) 05/22/22 12:25 Discharge Plan Discharge Patient Disposition: Home Clinical Impression: Nonspecific dizziness Condition: Stable Prescriptions: No Action Tylenol 325 mg Tablet 325 mg PO QID PRN (Reason: Pain) 0RF Advil 200 mg Tablet 200 mg PO Q6H PRN (Reason: Pain) 0RF hydrocodone-acetaminophen 5-325 mg tablet 1 tab PO Q6H PRN (Reason: pain) Qty: 12 0RF Discharge Orders: Discharge ED (Routine); Ordered 05/22/22 Ordered By: Grace Enriquez Referrals: Harleen Mclaughlin MD [Primary Care Provider] - Coding Level of Care Code ED Front End Loader Operator for Chg Fwd Exam Comprehensive
--- NOTE | 2022-05-22 12:08 | ECG_ITS ---
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 Measurements Intervals [place] Rate: 57 P: 54 NV: 142 QRS: 70 QRSD: 94 T: 40 QT: 427 QTc: 417 Interpretive Statements SINUS BRADYCARDIA No previous ECG available for comparison Electronically Signed On 05-22-2022 20:13:55 CDT by Kathie Colorado M.D. [id number]
[2022-05-22 12:35] LABS: Basophils # 0.1 10^3/uL (0.0-0.1); Basophils % 1.1 %; Eosinophils # 0.2 10^3/uL (0.0-0.8); Eosinophils % 1.5 %; Hematocrit 47.1 % (37.0-47.0); Hemoglobin 15.6 g/dL (11.5-15.3); Lymphocytes % 29.4 %; Mean Corpuscular HGB Conc 33.1 g/dL (30.0-36.0); Mean Corpuscular Hemoglobin 26.5 pg (28.0-34.0); Mean Corpuscular Volume 80.1 fl (81-99); Mean Platelet Volume 9.8 fL (7.4-10.4); Monocytes # 0.6 10^3/uL (0.2-0.9); Monocytes % 5.9 %; Neutrophils # 6.24 10^3/uL (1.8-7.7); Neutrophils % 61.9 %; Nucleated Red Blood Cells % 0 %; Platelet Count 287 10^3/cmm (130-400); Red Blood Count 5.88 10^6/uL (4.1-5.3); Red Cell Distribution Width 14.5 % (12.1-15.1); White Blood Count 10.1 10^3/uL (4.0-10.0)
[2022-05-22 12:52] LABS: HCG, Serum Qual Negative (Negative)
[2022-05-22 13:09] LABS: Alanine Aminotransferase 26 U/L (0-33); Albumin Level 4.2 g/dL (3.5-5.2); Alkaline Phosphatase 63 IU/L (35-105); Anion Gap 13.2 (5-19); Aspartate Amino Transferase 17 U/L (0-32); Blood Urea Nitrogen 9 mg/dL (6-20); Calcium 8.9 mg/dL (8.5-10.5); Carbon Dioxide 22 mmol/L (22-29); Chloride 103 mmol/L (98-107); Creatinine Clr Calc Pharmacy 148.0868; Globulin 3.2 g/dL (1.3-4.6); Glomerular Filtration Rate 115.1 mL/min (90-130); Glucose 81 mg/dL (65-115); Osmolality Calculated 276 mOsm/kg (285-295); Potassium 4.2 mmol/L (3.5-5.1); Sodium 134 mmol/L (136-145); Thyroid Stimulating Hormone 2.74 uIU/mL (0.27-4.20); Total Bilirubin 0.3 mg/dL (0.15-1.2); Total Protein 7.4 g/dL (6.6-8.7)
== END 2022-05-22 13:36 | disposition home or self-care (01) ==
PROVIDERS: Emergency Provider Physician Assistant; PCP Family Medicine
DX: R42 Dizziness and giddiness (principal); F17.210 Nicotine dependence, cigarettes, uncomplicated
CPT/HCPCS: 80053; 84443; 84703; 85025; 93005; 99283

== ENCOUNTER 2023-09-17 21:51 | Emergency (ER) | payer SELFPAY ==
[2023-09-17 22:00] VITALS: BP 135/86; PULSE 86; RESP 16; TEMP 37.2; O2SAT 98; BMI 41.1
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
[2023-09-17] MEDS: naproxen 500 mg Tablet PO (22:55)
[2023-09-17 22:56] VITALS: RESP 16
[2023-09-17 23:54] VITALS: BP 119/82; PULSE 72; RESP 16; TEMP 36.6; O2SAT 96
== END 2023-09-18 00:04 | disposition home or self-care (01) ==
PROVIDERS: Emergency Provider Emergency Medicine; PCP Nurse Practitioner Family
DX: S16.1XXA Strain of muscle, fascia and tendon at neck level, initial encounter (principal); S40.022A Contusion of left upper arm, initial encounter; F17.210 Nicotine dependence, cigarettes, uncomplicated; Y04.2XXA Assault by strike against or bumped into by another person, initial encounter; Y99.0 Civilian activity done for income or pay
CPT/HCPCS: 72040; 72072; 72100; 73060; 73090; 99284

== ENCOUNTER 2023-11-21 16:55 | Emergency (ER) | payer SELFPAY ==
--- NOTE | 2023-11-21 16:58 | XRR_ITS ---
PROCEDURE INFORMATION: Exam: XR Right Wrist Exam date and time: 11/21/2023 5:16 PM Age: 33 years old Clinical indication: Injury or trauma; Other: Sudden pain; Sprain or strain; Wrist; Right TECHNIQUE: Imaging protocol: Radiologic exam of the right wrist. Views: 3 or more views. COMPARISON: CR ( EX, ) 11/21/2023 5:16 PM FINDINGS: Bones/joints: No fracture or dislocation. Soft tissues: No acute findings. XR/XR wrist RT min 3V* [id number] IMPRESSION: No acute findings.
--- NOTE | 2023-11-21 16:58 | XRR_ITS ---
PROCEDURE INFORMATION: Exam: XR Right Hand Exam date and time: 11/21/2023 5:16 PM Age: 33 years old Clinical indication: Injury or trauma; Other: Sudden pain; Sprain or strain; Hand; Right TECHNIQUE: Imaging protocol: Radiologic exam of the right hand. Views: 3 or more views. COMPARISON: CR (UP EX, ) 11/21/2023 5:16 PM FINDINGS: Bones/joints: No fracture or dislocation. Soft tissues: No acute findings. XR/XR hand RT min 3V* [id number] IMPRESSION: No acute findings.
[2023-11-21 17:05] VITALS: BP 138/88; PULSE 79; TEMP 36.3; O2SAT 98; BMI 41.1
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
== END 2023-11-21 19:10 | disposition home or self-care (01) ==
PROVIDERS: Emergency Provider Nurse Practitioner Family; PCP Nurse Practitioner Family
DX: S63.501A Unspecified sprain of right wrist, initial encounter (principal); S66.911A Strain of unspecified muscle, fascia and tendon at wrist and hand level, right hand, initial encounter; F17.210 Nicotine dependence, cigarettes, uncomplicated; W19.XXXA Unspecified fall, initial encounter
CPT/HCPCS: 73110; 73130; 99283

== ENCOUNTER 2024-01-11 02:26 | Emergency (ER) | payer SELFPAY ==
[2024-01-11 03:00] VITALS: BP 118/76; PULSE 76; RESP 16; O2SAT 97
--- NOTE | 2024-01-11 03:08 | ED_ITS ---
Documented by User: Renato Narvaez MD 01/11/24 07:22 HPI - Female Genitourinary 2 General: Chief complaint: Urogenital-Female Stated complaint: vaginal bleeding - 5 wks Time Seen by Provider: 01/11/24 03:13 History of Present Illness: 33-year-old female presents emerged part with complaints of intermittent vaginal spotting. She states she is approximately 5 weeks gestation. She states she did take a positive home test but is not been seen by BUSINESS ANALYTICS DIRECTOR. She states her BUSINESS ANALYTICS DIRECTOR appointment is January 15 for an evaluation. She states that she has not recently been having any sexual activity and states that she has not had any vaginal discharge. She does endorse increased urinary frequency and dysuria. She states she is concerned that she may be having a miscarriage. Review of Systems 2 General: Reports: 10 or more systems reviewed and unremarkable except in HPI and below : Reports: dysuria and urinary frequency PFS ED 2 PFSH: Medical History Endometriosis -Diagnosis confirmed by peritoneal biopsy showing endometriosis in 03/2015 -Tried Depo-Provera on 05/19/2015 however cause worsening pain symptoms and depression. This was stopped. No pertinent past medical history Denies history of: Asthma, lung, liver, kidney, heart or thyroid problems, hypercholesterolemia, hypertension, DVT/PE, bleeding or clotting disorders, genital herpes. PCP: None Pharyngitis with viral syndrome Viral syndrome Surgical History S/P laparoscopic procedure (~2014) 04/07/2015-chronic pelvic pain. Hysteroscopy, D&C, diagnostic laparoscopy with biopsy of peritoneum and drainage of paratubal [place] [facility] [place]Findings at time of surgery-normal appendix and ovaries bilaterally, right fallopian tube with a 2 cm paratubal cyst that was drained, cul-de-sac was hemorrhagic with filmy adhesions of the right ovary to the right pelvic sidewall and hemorrhagic and scar tissue in the cul-de-sac which was biopsied-possible endometriosis--- pathology confirmed endometriosis Status post hysteroscopy 04/07/2015 done at time of laparoscopy for evaluation of chronic pelvic pain- on hysteroscopy bilateral ostia visualized with no endometrial pathology. -Pathology of the endometrial curetting showed disordered proliferation. Family History Mother Diabetes Breast cancer diagnosed at age 53 Grandmother Diabetes maternal Heart disease maternal Brain cancer maternal Grandfather Stroke maternal, Family/Other Breast cancer Maternal aunt, diagnosed at age 45 Denies family history of Colon cancer Ovarian cancer Hyperlipidemia Hypertension Uterine cancer Thyroid disease Social History Smoking and tobacco/nicotine status: current every day tobacco/nicotine user Alcohol intake: unknown Substance/Drug Use: never Additional social history: - Tobacco Use: Started smoking in 2006 and has smoked up to 2 packs per day. Started cutting back when she became and would like to quit. Currently smokes up to 1/2 pack per day. Alcohol Use: Drinks an alcoholic beverage once yearly on average. Denies alcohol Use since becoming . 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 Physical Exam 2 Narrative: EXAM NARRATIVE: Constitutional: the patient appears well nourished and of normal development. Vital signs as documented. No acute distress at present. Alert and oriented-to person, place, time and situation. Head, eyes, ears, nose, mouth, throat: Normocephalic, atraumatic. Pupils-equal, round, reactive to light. No scleral icterus. Normal-appearing external ears. Normal appearing nasal turbinates, no drainage. No obvious oral lesions, posterior oropharynx without erythema or exudates. Neck: Supple, trachea is midline, no lymphadenopathy, no jugular venous distension, thyromegaly, or carotid bruits. Carotid upstrokes are brisk bilaterally. Lungs: clear to auscultation to all lung navarro. Symmetrical rise and fall of chest, no obvious signs of increased work of breathing at present. Cardiac: Regular rate and rhythm, positive S1, S2. No murmurs, rubs or gallops that I can appreciate Abdomen: Soft, non-tender to palpation, normal active bowel sounds to all quadrants. No palpable masses, no organomegaly and abdominal bruits. Extremities: 2+ pulses in the upper extremities that are equal bilaterally, 2+ pulses in the lower extremities that are equal bilaterally. Non-edematous. Moves all extremities well, sensation to all extremities are noted. Skin: Warm, dry, intact. Course 2 Vital Signs: Vital signs: Vital Signs Pulse Rate 72 01/11/24 07:30 Respiratory Rate 16 01/11/24 03:00 Blood Pressure 127/72 01/11/24 07:30 Pulse Oximetry 99 01/11/24 07:30 Oxygen Delivery Me thod Room Air 01/11/24 07:30 MDM - Female Medical Decision Making Physical exam completed document I will obtain CBC CMP Rh as well as a urinalysis and obtain an ultrasound for evaluation. I have provided the patient Rocephin IV for her urinary tract infection and will provide antibiotics at the time of discharge. Medical Records I reviewed the patient's medical records. Lab Data I reviewed the patient's lab results. 01/11/24 03:20 01/11/24 03:20 Radiology Impressions Transvaginal US 01/11/24 05:16 IMPRESSION: No acute findings allowing for limitations, as above. Laboratory Results WBC 11.17 10^3/uL (3.29-11.43) 01/11/24 03:20 RBC 5.40 10^6/uL (3.85-5.65) 01/11/24 03:20 Hgb 14.30 g/dL (11.27-16.99) 01/11/24 03:20 Hct 44.6 % (36-47) 01/11/24 03:20 MCV 82.6 fl (85-98) L 01/11/24 03:20 MCH 26.5 pg (27-33) L 01/11/24 03:20 MCHC 32.1 g/dL (30-55) 01/11/24 03:20 RDW 15.3 % (12.1-15.1) H 01/11/24 03:20 Plt Count 289 10^3/cmm (157-399) 01/11/24 03:20 MPV 9.1 fL (7.4-10.4) 01/11/24 03:20 Neut % (Auto) 59.6 % 01/11/24 03:20 Lymph % (Auto) 30.0 % 01/11/24 03:20 Elbert % (Auto) 6.7 % 01/11/24 03:20 Eos % (Auto) 2.3 % 01/11/24 03:20 Baso % (Auto) 1.0 % 01/11/24 03:20 Neut # (Auto) 6.66 10^3/uL (1.8-7.7) 01/11/24 03:20 Lymph # (Auto) 3.4 10^3/uL (0.8-4.8) 01/11/24 03:20 Elbert # (Auto) 0.8 10^3/uL (0.2-0.9) 01/11/24 03:20 Eos # (Auto) 0.3 10^3/uL (0.0-0.8) 01/11/24 03:20 Baso # (Auto) 0.1 10^3/uL (0.0-0.1) 01/11/24 03:20 Nucleated RBC % (auto) 0 % 01/11/24 03:20 Nucleated RBCs # 0.0 /100WBC 01/11/24 03:20 PT 12.70 SECONDS (12.1-14.9) 01/11/24 03:20 INR 0.92 (0.8-1.2) 01/11/24 03:20 APTT 30.1 SECONDS (23.9-36.7) 01/11/24 03:20 Sodium 136 mmol/L (136-145) 01/11/24 03:20 Potassium 3.9 mmol/L (3.5-5.1) 01/11/24 03:20 Chloride 102 mmol/L (98-107) 01/11/24 03:20 Carbon Dioxide 24 mmol/L (22-29) 01/11/24 03:20 Anion Gap 13.9 (5-19) 01/11/24 03:20 BUN 11 mg/dL (6-20) 01/11/24 03:20 Creatinine 0.6 mg/dL (0.5-0.9) 01/11/24 03:20 GFR Calculation 114.4 mL/min (90-130) 01/11/24 03:20 Glucose 99 mg/dL (65-115) 01/11/24 03:20 Calculated Osmolality 281 mOsm/kg (285-295) L 01/11/24 03:20 Calcium 8.8 mg/dL (8.5-10.5) 01/11/24 03:20 Total Bilirubin 0.2 mg/dL (0.15-1.2) 01/11/24 03:20 AST 15 U/L (0-32) 01/11/24 03:20 ALT 29 U/L (0-33) 01/11/24 03:20 Alkaline Phosphatase 68 U/L (35-105) 01/11/24 03:20 Total Protein 6.7 g/dL (6.6-8.7) 01/11/24 03:20 Albumin 3.8 g/dL (3.5-5.2) 01/11/24 03:20 Globulin 2.9 g/dL (1.3-4.6) 01/11/24 03:20 Ser , Semi-Qnt 68.67 mIU/mL 01/11/24 03:20 Urine Color Yellow (Yellow) 01/11/24 04:19 Urine Appearance Cloudy (CLEAR) A 01/11/24 04:19 Urine pH 5 (5-7) 01/11/24 04:19 Ur Specific [place] 1.020 (1.005-1.030) 01/11/24 04:19 Urine Protein Neg (Negative) 01/11/24 04:19 Urine Glucose (UA) Norm (Normal) 01/11/24 04:19 Urine Ketones Negative (Negative) 01/11/24 04:19 Urine Blood 3+ (Negative) H 01/11/24 04:19 Urine Nitrate Positive (Negative) H 01/11/24 04:19 Urine Bilirubin Neg (Negative) 01/11/24 04:19 Urine Urobilinogen Norm mg/dL (Negative) 01/11/24 04:19 Ur Leukocyte Esterase 1+ (Negative) H 01/11/24 04:19 Urine RBC 50-80 /hpf (0-2) H 01/11/24 04:19 Urine WBC 15-25 /hpf (0-5) H 01/11/24 04:19 Ur Squamous Epith Cells 5-10 /hpf (0-5) H 01/11/24 04:19 Amorphous Sediment Not Reportable 01/11/24 04:19 Urine Bacteria 2+ /hpf (NONE) H 01/11/24 04:19 All radiology interpretation(s) finalized by discharge Discharge Plan Discharge Patient Disposition: Home Clinical Impression: Urinary tract infection Condition: Stable Prescriptions: New cefdinir 300 mg capsule 300 mg PO BID 7 Days Qty: 14 0RF No Action [id number] [Bromfed DM] 2-30-10 mg/5 mL syrup 5 ml PO Q6H PRN (Reason: cold symptoms) Qty: 118 0RF methocarbamol 750 mg tablet 750 mg PO Q6H PRN (Reason: spasms) Qty: 20 0RF Naprosyn 500 mg tablet 500 mg PO BID PRN (Reason: pain) Qty: 20 0RF Discharge Orders: Discharge ED (Routine); Ordered 01/11/24 Ordered By: Esperanza Gannon Referrals: Bernadine Bowens FNP [Primary Care Provider] - (You have been screened and evaluated and felt safe for discharge. Health conditions do change or evolve sometimes and as such it is important that you follow up with your Primary Doctor to be re checked, 3-5 days is a general good time frame for follow up. You are always welcome to return to the ED for re assessment if your symptoms are worsening or you have new concerns) Patient Instructions: Opioid Safety, Pain Management Coding Level of Care Code ED V Belt Mold Assembler And Curer for Chg Fwd Documented by User: Esperanza Gannon MD 01/11/24 08:04 HPI - Female Genitourinary 2 General: Chief complaint: Urogenital-Female Stated complaint: vaginal bleeding - 5 wks Time Seen by Provider: 01/11/24 03:13 [facility] ED 2 PFSH: Medical History Endometriosis -Diagnosis confirmed by peritoneal biopsy showing endometriosis in 03/2015 -Tried Depo-Provera on 05/19/2015 however cause worsening pain symptoms and depression. This was stopped. No pertinent past medical history Denies history of: Asthma, lung, liver, kidney, heart or thyroid problems, hypercholesterolemia, hypertension, DVT/PE, bleeding or clotting disorders, genital herpes. PCP: None Pharyngitis with viral syndrome Viral syndrome Surgical History S/P laparoscopic procedure (~2014) 04/07/2015-chronic pelvic pain. Hysteroscopy, D&C, diagnostic laparoscopy with biopsy of peritoneum and drainage of paratubal cyst [place] [facility] [place] -Findings at time of surgery-normal appendix and ovaries bilaterally, right fallopian tube with a 2 cm paratubal cyst that was drained, cul-de-sac was hemorrhagic with filmy adhesions of the right ovary to the right pelvic sidewall and hemorrhagic and scar tissue in the cul-de-sac which was biopsied-possible endometriosis--- pathology confirmed endometriosis Status post hysteroscopy 04/07/2015 done at time of laparoscopy for evaluation of chronic pelvic pain- on hysteroscopy bilateral ostia visualized with no endometrial pathology. -Pathology of the endometrial curetting showed disordered proliferation. Family History Mother Diabetes Breast cancer diagnosed at age 53 Grandmother Diabetes maternal Heart disease maternal Brain cancer maternal Grandfather Stroke maternal, Family/Other Breast cancer Maternal aunt, diagnosed at age 45 Denies family history of Colon cancer Ovarian cancer Hyperlipidemia Hypertension Uterine cancer Thyroid disease Social History Smoking and tobacco/nicotine status: current every day tobacco/nicotine user Alcohol intake: unknown Substance/Drug Use: never Additional social history: - Tobacco Use: Started smoking in 2006 and has smoked up to 2 packs per day. Started cutting back when she became and would like to quit. Currently smokes up to 1/2 pack per day. Alcohol Use: Drinks an alcoholic beverage once yearly on average. Denies alcohol Use since becoming . 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 Course 2 Vital Signs: Vital signs: Vital Signs Pulse Rate 72 01/11/24 07:30 Respiratory Rate 16 01/11/24 03:00 Blood Pressure 127/72 01/11/24 07:30 Pulse Oximetry 99 01/11/24 07:30 Oxygen Delivery Me thod Room Air 01/11/24 07:30 MDM - Female Lab Data 01/11/24 03:20 02/17/24 03:20 Radiology Impressions Transvaginal US 01/11/24 05:16 IMPRESSION: No acute findings allowing for limitations, as above. Laboratory Results WBC 11.17 10^3/uL (3.29-11.43) 01/11/24 03:20 RBC 5.40 10^6/uL (3.85-5.65) 01/11/24 03:20 Hgb 14.30 g/dL (11.27-16.99) 01/11/24 03:20 Hct 44.6 % (36-47) 01/11/24 03:20 MCV 82.6 fl (85-98) L 01/11/24 03:20 MCH 26.5 pg (27-33) L 01/11/24 03:20 MCHC 32.1 g/dL (30-55) 01/11/24 03:20 RDW 15.3 % (12.1-15.1) H 01/11/24 03:20 Plt Count 289 10^3/cmm (157-399) 01/11/24 03:20 MPV 9.1 fL (7.4-10.4) 01/11/24 03:20 Neut % (Auto) 59.6 % 01/11/24 03:20 Lymph % (Auto) 30.0 % 01/11/24 03:20 Elbert % (Auto) 6.7 % 01/11/24 03:20 Eos % (Auto) 2.3 % 01/11/24 03:20 Baso % (Auto) 1.0 % 01/11/24 03:20 Neut # (Auto) 6.66 10^3/uL (1.8-7.7) 01/11/24 03:20 Lymph # (Auto) 3.4 10^3/uL (0.8-4.8) 01/11/24 03:20 Elbert # (Auto) 0.8 10^3/uL (0.2-0.9) 01/11/24 03:20 Eos # (Auto) 0.3 10^3/uL (0.0-0.8) 01/11/24 03:20 Baso # (Auto) 0.1 10^3/uL (0.0-0.1) 01/11/24 03:20 Nucleated RBC % (auto) 0 % 01/11/24 03:20 Nucleated RBCs # 0.0 /100WBC 01/11/24 03:20 PT 12.70 SECONDS (12.1-14.9) 01/11/24 03:20 INR 0.92 (0.8-1.2) 01/11/24 03:20 APTT 30.1 SECONDS (23.9-36.7) 01/11/24 03:20 Sodium 136 mmol/L (136-145) 01/11/24 03:20 Potassium 3.9 mmol/L (3.5-5.1) 01/11/24 03:20 Chloride 102 mmol/L (98-107) 01/11/24 03:20 Carbon Dioxide 24 mmol/L (22-29) 01/11/24 03:20 Anion Gap 13.9 (5-19) 01/11/24 03:20 BUN 11 mg/dL (6-20) 01/11/24 03:20 Creatinine 0.6 mg/dL (0.5-0.9) 01/11/24 03:20 GFR Calculation 114.4 mL/min (90-130) 01/11/24 03:20 Glucose 99 mg/dL (65-115) 01/11/24 03:20 Calculated Osmolality 281 mOsm/kg (285-295) L 01/11/24 03:20 Calcium 8.8 mg/dL (8.5-10.5) 01/11/24 03:20 Total Bilirubin 0.2 mg/dL (0.15-1.2) 01/11/24 03:20 AST 15 U/L (0-32) 01/11/24 03:20 ALT 29 U/L (0-33) 01/11/24 03:20 Alkaline Phosphatase 68 U/L (35-105) 01/11/24 03:20 Total Protein 6.7 g/dL (6.6-8.7) 01/11/24 03:20 Albumin 3.8 g/dL (3.5-5.2) 01/11/24 03:20 Globulin 2.9 g/dL (1.3-4.6) 01/11/24 03:20 Ser , Semi-Qnt 68.67 mIU/mL 01/11/24 03:20 Urine Color Yellow (Yellow) 01/11/24 04:19 Urine Appearance Cloudy (CLEAR) A 01/11/24 04:19 Urine pH 5 (5-7) 01/11/24 04:19 Ur Specific [place] 1.020 (1.005-1.030) 01/11/24 04:19 Urine Protein Neg (Negative) 01/11/24 04:19 Urine Glucose (UA) Norm (Normal) 01/11/24 04:19 Urine Ketones Negative (Negative) 01/11/24 04:19 Urine Blood 3+ (Negative) H 01/11/24 04:19 Urine Nitrate Positive (Negative) H 01/11/24 04:19 Urine Bilirubin Neg (Negative) 01/11/24 04:19 Urine Urobilinogen Norm mg/dL (Negative) 01/11/24 04:19 Ur Leukocyte Esterase 1+ (Negative) H 01/11/24 04:19 Urine RBC 50-80 /hpf (0-2) H 01/11/24 04:19 Urine WBC 15-25 /hpf (0-5) H 01/11/24 04:19 Ur Squamous Epith Cells 5-10 /hpf (0-5) H 01/11/24 04:19 Amorphous Sediment Not Reportable 01/11/24 04:19 Urine Bacteria 2+ /hpf (NONE) H 01/11/24 04:19 Other Data Ultrasound of the abdomen was checked out for me to follow-up on. Patient has a quant of around 70. Ultrasound shows no evidence of at this time. She is either extremely early or she had an early miscarriage. -IV Rocephin given in the emergency room. - Discharged home - Discussed plan with patient. Answered any questions. - Evaluation and treatment of this problem were appropriate in the emergency setting. Discharge Plan Discharge Patient Disposition: Home Clinical Impression: Urinary tract infection Condition: Stable Prescriptions: New cefdinir 300 mg capsule 300 mg PO BID 7 Days Qty: 14 0RF No Action [id number]-[id number] [Bromfed DM] 2-30-10 mg/5 mL syrup 5 ml PO Q6H PRN (Reason: cold symptoms) Qty: 118 0RF methocarbamol 750 mg tablet 750 mg PO Q6H PRN (Reason: spasms) Qty: 20 0RF Naprosyn 500 mg tablet 500 mg PO BID PRN (Reason: pain) Qty: 20 0RF Discharge Orders: Discharge ED (Routine); Ordered 01/11/24 Ordered By: Esperanza Gannon Referrals: Bernadine Bowens FNP [Primary Care Provider] - (You have been screened and evaluated and felt safe for discharge. Health conditions do change or evolve sometimes and as such it is important that you follow up with your Primary Doctor to be re checked, 3-5 days is a general good time frame for follow up. You are always welcome to return to the ED for re assessment if your symptoms are worsening or you have new concerns) Patient Instructions: Opioid Safety, Pain Management Coding Level of Care Code ED V Belt Mold Assembler And Curer for 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
[2024-01-11 03:28] LABS: Basophils # 0.1 10^3/uL (0.0-0.1); Eosinophils # 0.3 10^3/uL (0.0-0.8); Eosinophils % 2.3 %; Hematocrit 44.6 % (36-47); Lymphocytes # 3.4 10^3/uL (0.8-4.8); Mean Corpuscular HGB Conc 32.1 g/dL (30-55); Mean Corpuscular Hemoglobin 26.5 pg (27-33); Mean Corpuscular Volume 82.6 fl (85-98); Mean Platelet Volume 9.1 fL (7.4-10.4); Monocytes # 0.8 10^3/uL (0.2-0.9); Monocytes % 6.7 %; Neutrophils # 6.66 10^3/uL (1.8-7.7); Neutrophils % 59.6 %; Nucleated Red Blood Cells % 0 %; Platelet Count 289 10^3/cmm (157-399); Red Cell Distribution Width 15.3 % (12.1-15.1); White Blood Count 11.17 10^3/uL (3.29-11.43)
[2024-01-11 03:42] LABS: INR 0.92 (0.8-1.2)
[2024-01-11 03:43] LABS: Partial Thromboplastin Time 30.1 SECONDS (23.9-36.7)
[2024-01-11 03:47] LABS: HCG Quantitative 68.67 mIU/mL
[2024-01-11 04:04] LABS: Alanine Aminotransferase 29 U/L (0-33); Albumin Level 3.8 g/dL (3.5-5.2); Alkaline Phosphatase 68 U/L (35-105); Anion Gap 13.9 (5-19); Aspartate Amino Transferase 15 U/L (0-32); Blood Urea Nitrogen 11 mg/dL (6-20); Calcium 8.8 mg/dL (8.5-10.5); Carbon Dioxide 24 mmol/L (22-29); Chloride 102 mmol/L (98-107); Creatinine Clr Calc Pharmacy 149.7295; Globulin 2.9 g/dL (1.3-4.6); Glomerular Filtration Rate 114.4 mL/min (90-130); Glucose 99 mg/dL (65-115); Osmolality Calculated 281 mOsm/kg (285-295); Potassium 3.9 mmol/L (3.5-5.1); Sodium 136 mmol/L (136-145); Total Bilirubin 0.2 mg/dL (0.15-1.2); Total Protein 6.7 g/dL (6.6-8.7)
[2024-01-11 04:35] LABS: Add Urine Microscopic? YES; Bilirubin Urine Neg (Negative); Blood Urine 3+ (Negative); Glucose Urine UA Norm (Normal); Ketones Urine Negative (Negative); Leukocyte Esterase Urine 1+ (Negative); Nitrate Urine Positive (Negative); Protein Urine Neg (Negative); Urine Appearance Cloudy (CLEAR); Urine Color Yellow (Yellow); Urobilinogen Urine Norm (Negative); pH Urine 5 (5-7)
[2024-01-11 04:38] LABS: Add Urine Culture? Yes; Bacteria Urine 2+ /hpf; RBC Urine 50-80 /hpf (0-2); WBC Urine 15-25 /hpf (0-5)
--- NOTE | 2024-01-11 05:16 | USR_ITS ---
PROCEDURE INFORMATION: Exam: US Pelvis, Transvaginal Exam date and time: 01/11/2024 6:44 AM Age: 33 years old Clinical indication: Other: Bleeding with a positive preg test; Prior surgery; Surgery date: 6+ months; Surgery type: C section; Additional info: Vaginal bleeding with TECHNIQUE: Imaging protocol: Real-time transvaginal pelvic ultrasound with image documentation. Transvaginal imaging was used for better evaluation of the endometrium, adnexa, and/or cervix. COMPARISON: CT abdomen pelvis w con* [id number] 01/12/2022 4:59 PM FINDINGS: Uterus: Uterus measures 7.7 x 5.2 x 5.2 cm. Focal hypoechoic region within the uterus measuring 1 x 0.9 x 1.1 cm probably represents a small fibroid. Endometrium measures 7 mm. Right ovary/adnexa: The right ovary measures 2.7 x 2.5 x 2.8 cm, volume of 10 cc. There is a subcentimeter follicle within the right ovary measuring up to 1 cm. There is blood flow in the right ovary. Left ovary/adnexa: The left ovary measures 3.2 x 2 x 3 cm, volume of 10.2 cc. Spectral Doppler evaluation of the left ovary was technically limited probably due to the position of the left ovary in the deep pelvis. Intraperitoneal space: Small amount of fluid in the pelvis probably physiologic. Limitations: Examination is limited by patient's body habitus and bowel gas. US/US transvaginal [id number] IMPRESSION: No acute findings allowing for limitations, as above.
[2024-01-11] MEDS: cefTRIAXone 1,000 MG in sodium chloride 0.9% (plus) 50 ML 100 MG IV (05:41)
--- NOTE | 2024-01-11 07:11 | PC.NURSE ---
ASSUMED CARE OF PT FROM LUCY TELLO AT 0700.
[2024-01-11 07:30] VITALS: BP 127/72; PULSE 72; O2SAT 99
[2024-01-11 08:22] VITALS: PULSE 69; O2SAT 97
== END 2024-01-11 08:24 | disposition home or self-care (01) ==
PROVIDERS: Emergency Provider Internal Medicine; PCP Nurse Practitioner Family
DX: O23.41 Unspecified infection of urinary tract in pregnancy, first trimester (principal); N39.0 Urinary tract infection, site not specified; Z3A.01 Less than 8 weeks gestation of pregnancy; O99.331 Smoking (tobacco) complicating pregnancy, first trimester; F17.210 Nicotine dependence, cigarettes, uncomplicated
CPT/HCPCS: 36415; 76830; 80053; 81001; 84702; 85025; 85610; 85730; 87077; 87086; 87186; 96365; 99284; J0696

== ENCOUNTER 2024-09-25 07:23 | Emergency (ER) | payer MEDICAID, SELFPAY ==
[2024-09-25 07:30] VITALS: BP 143/86; PULSE 57; RESP 16; TEMP 35.9; O2SAT 100; BMI 40.9
--- NOTE | 2024-09-25 07:41 | CTR_ITS ---
PROCEDURE INFORMATION: Exam: CT Abdomen And Pelvis With Contrast Exam date and time: 09/25/2024 8:44 AM Age: 34 years old Clinical indication: Vomiting; Abdominal pain; Generalized; Additional info: Lower abdominal pain, n/v TECHNIQUE: Imaging protocol: Computed tomography of the abdomen and pelvis with contrast. Radiation optimization: All CT scans at this facility use at least one of these dose optimization techniques: automated exposure control; mA and/or kV adjustment per patient size (includes targeted exams where dose is matched to clinical indication); or iterative reconstruction. Contrast material: OMNI 350; Contrast volume: 100 ml; Contrast route: INTRAVENOUS (IV); COMPARISON: CT abdomen pelvis w con* [id number] 01/12/2022 4:59 PM RADIATION DOSE METRICS: Total DLP (mGy-cm): 974.73 FINDINGS: Liver: Normal. No mass. Gallbladder and biliary ducts: Normal. No calcified stones. No ductal dilation. Pancreas: Moderate pancreatic atrophy. Spleen: The spleen is enlarged measuring 14.3 cm longitudinally. Adrenal glands: Normal. No mass. Kidneys and ureters: Normal. No hydronephrosis. Stomach and bowel: Nonspecific mild wall thickening of proximal jejunal loops. Appendix: The vermiform appendix is normal. Intraperitoneal space: No free air. No significant fluid collection. Vasculature: Calcified phleboliths are present in the lower pelvis bilaterally. Lymph nodes: No enlarged lymph nodes. Urinary bladder: Unremarkable as visualized. Reproductive: Unremarkable as visualized. Bones/joints: Unremarkable. No acute fracture. Soft tissues: Unremarkable. CT/CT abdomen pelvis w con* [id number] IMPRESSION: 1. Nonspecific mild wall thickening of proximal jejunal loops. Possible nonspecific enteritis. Clinical correlation is recommended. 2. Mild splenomegaly.
--- NOTE | 2024-09-25 07:41 | ED_ITS ---
HPI - Abdominal Pain 2 General: Chief Complaint: Abdominal Pain Stated Complaint: nausea, dizzy, abd pain, vomitting Time Seen by Provider: 09/25/24 07:33 Source: patient Mode of arrival: ambulatory Limitations: no limitations History of Present Illness: Patient is a 34-year-old female presents to ED today with a complaint of pain across her lower abdominal pain. She states pain began on her way to work. She states once pain began she began feeling nauseous and sweaty. She states she pulled over because she began feeling dizzy as well. She states she is still having pain but not quite as severe as onset. She is not having any back pain/flank pain. No urinary symptoms. No chest pain, shortness of breath, or difficulty breathing. Previous abdominal surgeries include an exploratory laparoscopy for her diagnosis of endometriosis. MD elicited complaint: abdominal pain Pertinent past history: none Onset (ago): hour(s) Pain Consistency: constant Location: RLQ, LLQ, Suprapubic and Pelvis Severity: moderate Radiation: none Migration to: no migration Exacerbating factors: nothing Relieving factors: nothing Associated Symptoms: Reports nausea and vomiting; Denies change in bowel habits, chills, diarrhea, dysuria, fever(s) and hematemesis Related Data Date of Last Menstrual Period: 09/24/24 Home Medications Medication Instructions Recorded Confirmed multivitamin 1 tab PO DAILY 09/25/24 09/25/24 Allergies Allergy/AdvReac Type Severity Reaction Status Date / Time No Known Allergies Allergy Verified 11/21/23 17:11 Review of Systems 2 Const: Denies: fever(s), chills, body aches, fatigue or malaise Card: Denies: chest pain Resp: Denies: dyspnea GI: Reports: abdominal pain, nausea and vomiting; Denies: hematemesis, diarrhea or change in bowel habits : Denies: flank pain, difficulty voiding, dysuria, urinary frequency, urinary urgency or urinary hesitancy Musc: Denies: neck pain, back pain, extremity pain, extremity swelling, joint pain or joint swelling Skin/Breast: Denies: rash Neuro: Denies: headache(s), numbness in extremities, weakness in extremities, sensory changes or dizziness PFSH ED 2 PFSH: Medical History Viral syndrome Pharyngitis with viral syndrome Endometriosis -Diagnosis confirmed by peritoneal biopsy showing endometriosis in 03/2015 -Tried Depo-Provera on 05/19/2015 however cause worsening pain symptoms and depression. This was stopped. No pertinent past medical history Denies history of: Asthma, lung, liver, kidney, heart or thyroid problems, hypercholesterolemia, hypertension, DVT/PE, bleeding or clotting disorders, genital herpes. PCP: None Surgical History Status post hysteroscopy 04/07/2015 done at time of laparoscopy for evaluation of chronic pelvic pain- on hysteroscopy bilateral ostia visualized with no endometrial pathology. -Pathology of the endometrial curetting showed disordered proliferation. S/P laparoscopic procedure () 04/07/2015-chronic pelvic pain. Hysteroscopy, D&C, diagnostic laparoscopy with biopsy of peritoneum and drainage of paratubal cyst [place] [facility] [place]Findings at time of surgery-normal appendix and ovaries bilaterally, right fallopian tube with a 2 cm paratubal cyst that was drained, cul-de-sac was hemorrhagic with filmy adhesions of the right ovary to the right pelvic sidewall and hemorrhagic and scar tissue in the cul-de-sac which was biopsied-possible endometriosis--- pathology confirmed endometriosis Family History Mother Diabetes Breast cancer diagnosed at age 53 Grandmother Diabetes maternal Heart disease maternal Brain cancer maternal Grandfather Stroke maternal, Family/Other Breast cancer Maternal aunt, diagnosed at age 45 Denies family history of Colon cancer Ovarian cancer Hyperlipidemia Hypertension Uterine cancer Thyroid disease Social History Smoking and tobacco/nicotine status: current every day tobacco/nicotine user Alcohol intake: unknown Substance/Drug Use: never Additional social history: - Tobacco Use: Started smoking in 2006 and has smoked up to 2 packs per day. Started cutting back when she became and would like to quit. Currently smokes up to 1/2 pack per day. Alcohol Use: Drinks an alcoholic beverage once yearly on average. Denies alcohol Use since becoming . 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 Female Reproductive History: Date of last menstrual period: 09/24/24 Physical Exam 2 Const: COMMON NORMALS: no acute distress, average body habitus, patient oriented x3, no limitations, healthy appearing, alert and well nourished G ENERAL APPEARANCE: cooperative NUTRITIONAL APPEARANCE: obese (BMI 41.0) O RIENTATION/CONSCIOUSNESS: Yes awake, Yes oriented to person, Yes oriented to place and Yes oriented to time Eye: COMMON NORMALS: no scleral icterus Resp: COMMON NORMALS: normal respiratory effort and clear to auscultation bilaterally AUSCULTATION: clear to auscultation bilaterally Cardio: COMMON NORMALS: regular rate and regular rhythm RATE: regular rate RHYTHM: regular rhythm GI: COMMON NORMALS: Normal to inspection, nondistended, normoactive bowel sounds present, Soft to palpation, No hepatosplenomegaly present and no masses INSPECTION: Yes normal to inspection AUSCULTATION: Yes normoactive bowel sounds PALPATION: Yes Soft to palpation, Yes Tenderness to palpation present (GI) (throughout lower abdomen-non surgical exam), No Guarding due to palpation present (GI), No Rigid due to palpation and Yes No hepatosplenomegaly present : COMMON NORMALS: Yes no CVA tenderness BLADDER/KIDNEY EXAM: Yes no CVA tenderness Back/Pelvis: COMMON NORMALS: no CVA tenderness and thoracic and lumbar spine normal to inspection Extremity: GENERAL: Yes normal exam except as noted Neuro: NORA COMA SCALE: document GCS findings Caspar coma scale eye opening: Spontaneous Nora coma scale verbal response: Orientated Nora coma scale motor response: Obey commands Caspar coma scale total score: 15 COMMON NORMALS: patient oriented x3, moves all extremities, no focal motor deficits, no sensory deficits noted and gait normal SENSORIUM/ORIENTATION: Yes alert, Yes oriented to person, Yes oriented to place and Yes oriented to time Skin: COMMON NORMALS: no rashes or lesions noted GENERAL SKIN EXAM: no rashes or lesions noted Course 2 Vital Signs: Vital signs: Vital Signs Temperature 96.7 F L 09/25/24 07:30 Pulse Rate 63 09/25/24 09:36 Respiratory Rate 16 09/25/24 09:36 Blood Pressure 119/80 09/25/24 09:36 Pulse Oximetry 98 09/25/24 09:36 Oxygen Delivery Me thod Room Air 09/25/24 07:30 MDM - Abdominal Pain Medical Decision Making Patient upon arrival appears in no acute distress. On re-examination, she is sleeping comfortably. Her vital signs are stable. Blood work is unremarkable. UA showing hematuria but patient states she started her menstrual cycle yesterday. She is not having any flank pain or UTI-like symptoms. CT scan showing nonspecific enteritis. She was given instructions for this. Return to ED precautions given. Medical Records I reviewed the patient's medical records. Lab Data I reviewed the patient's lab results. 09/25/24 08:16 09/25/24 08:16 Labs/Radiology: Radiology Impressions Abdomen/Pelvis CT 09/25/24 07:41 IMPRESSION: 1. Nonspecific mild wall thickening of proximal jejunal loops. Possible nonspecific enteritis. Clinical correlation is recommended. 2. Mild splenomegaly. Laboratory Results WBC 9.82 10^3/uL (3.29-11.43) 09/25/24 08:16 RBC 5.78 10^6/uL (3.85-5.65) H 09/25/24 08:16 Hgb 15.40 g/dL (11.27-16.99) 09/25/24 08:16 Hct 48.9 % (36-47) H 09/25/24 08:16 MCV 84.6 fl (85-98) L 09/25/24 08:16 MCH 26.6 pg (27-33) L 09/25/24 08:16 MCHC 31.5 g/dL (30-55) 09/25/24 08:16 RDW 14.6 % (12.1-15.1) 09/25/24 08:16 Plt Count 265 10^3/cmm (157-399) 09/25/24 08:16 MPV 9.8 fL (7.4-10.4) 09/25/24 08:16 Neut % (Auto) 66.9 % 09/25/24 08:16 Lymph % (Auto) 24.1 % 09/25/24 08:16 Butler % (Auto) 6.2 % 09/25/24 08:16 Eos % (Auto) 1.7 % 09/25/24 08:16 Baso % (Auto) 0.9 % 09/25/24 08:16 Neut # (Auto) 6.56 10^3/uL (1.8-7.7) 09/25/24 08:16 Lymph # (Auto) 2.4 10^3/uL (0.8-4.8) 09/25/24 08:16 Butler # (Auto) 0.6 10^3/uL (0.2-0.9) 09/25/24 08:16 Eos # (Auto) 0.2 10^3/uL (0.0-0.8) 09/25/24 08:16 Baso # (Auto) 0.1 10^3/uL (0.0-0.1) 09/25/24 08:16 Nucleated RBC % (auto) 0 % 09/25/24 08:16 Nucleated RBCs # 0.0 /100WBC 09/25/24 08:16 Sodium 139 mmol/L (136-145) 09/25/24 08:16 Potassium 4.9 mmol/L (3.5-5.1) 09/25/24 08:16 Chloride 104 mmol/L (98-107) 09/25/24 08:16 Carbon Dioxide 24 mmol/L (22-29) 09/25/24 08:16 Anion Gap 15.9 (5-19) 09/25/24 08:16 BUN 11 mg/dL (6-20) 09/25/24 08:16 Creatinine 0.8 mg/dL (0.5-0.9) 09/25/24 08:16 GFR Calculation 81.6 mL/min (90-130) L 09/25/24 08:16 Glucose 131 mg/dL (65-115) H 09/25/24 08:16 Calculated Osmolality 289 mOsm/kg (285-295) 09/25/24 08:16 Calcium 8.4 mg/dL (8.5-10.5) L 09/25/24 08:16 Total Bilirubin 0.2 mg/dL (0.15-1.2) 09/25/24 08:16 AST 15 U/L (0-32) 09/25/24 08:16 ALT 21 U/L (0-33) 09/25/24 08:16 Alkaline Phosphatase 71 U/L (35-105) 09/25/24 08:16 Total Protein 7.0 g/dL (6.6-8.7) 09/25/24 08:16 Albumin 4.1 g/dL (3.5-5.2) 09/25/24 08:16 Globulin 2.9 g/dL (1.3-4.6) 09/25/24 08:16 HCG, Qual Negative (Negative) 09/25/24 08:16 Urine Color Yellow (Yellow) 09/25/24 09:30 Urine Appearance Clear (CLEAR) 09/25/24 09:30 Urine pH 5.5 (5-7) 09/25/24 09:30 Ur Specific Pinson 1.071 (1.005-1.030) H 09/25/24 09:30 Urine Protein Trace (Negative) A 09/25/24 09:30 Urine Glucose (UA) Negative (Normal) 09/25/24 09:30 Urine Ketones Negative (Negative) 09/25/24 09:30 Urine Blood 3+ (Negative) A 09/25/24 09:30 Urine Nitrate Negative (Negative) 09/25/24 09:30 Urine Bilirubin Negative (Negative) 09/25/24 09:30 Urine Urobilinogen 0.2 mg/dL (Negative) 09/25/24 09:30 Ur Leukocyte Esterase Negative (Negative) 09/25/24 09:30 Urine RBC >100 /hpf (0-2) H 09/25/24 09:30 Urine WBC 0-5 /hpf (0-5) 09/25/24 09:30 Ur Squamous Epith Cells 0-5 /hpf (0-5) 09/25/24 09:30 Amorphous Sediment Not Reportable 09/25/24 09:30 Urine Bacteria None seen /hpf (NONE) 09/25/24 09:30 Hyaline Casts 0.40 /lpf 09/25/24 09:30 All radiology interpretation(s) finalized by discharge Discharge Plan Discharge Patient Disposition: Home Clinical Impression: Enteritis Condition: Stable Prescriptions: No Action multivitamin Tablet 1 tab PO DAILY Discharge Orders: Discharge ED (Routine); Ordered 09/25/24 Ordered By: Grace Enriquez Referrals: Bernadine Bowens FNP [Primary Care Provider] - Patient Instructions: Enteritis (ED) Activity Restrictions/Additional Instructions: As we discussed, I would like you to do a bland liquid diet over the next few days and advance as tolerated. You may return to the emergency department for worsening abdominal pain, repetitive episodes of vomiting, fevers, bloody stools, generally feeling worse or unwell, or any other concerns you may have. I would like you to follow-up with primary care next week for reevaluation. Coding Level of Care Code ED [employer] for 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
[2024-09-25 08:23] LABS: Basophils # 0.1 10^3/uL (0.0-0.1); Basophils % 0.9 %; Eosinophils # 0.2 10^3/uL (0.0-0.8); Eosinophils % 1.7 %; Hematocrit 48.9 % (36-47); Lymphocytes # 2.4 10^3/uL (0.8-4.8); Lymphocytes % 24.1 %; Mean Corpuscular HGB Conc 31.5 g/dL (30-55); Mean Corpuscular Hemoglobin 26.6 pg (27-33); Mean Corpuscular Volume 84.6 fl (85-98); Mean Platelet Volume 9.8 fL (7.4-10.4); Monocytes # 0.6 10^3/uL (0.2-0.9); Monocytes % 6.2 %; Neutrophils # 6.56 10^3/uL (1.8-7.7); Neutrophils % 66.9 %; Nucleated Red Blood Cells % 0 %; Platelet Count 265 10^3/cmm (157-399); Red Blood Count 5.78 10^6/uL (3.85-5.65); Red Cell Distribution Width 14.6 % (12.1-15.1); White Blood Count 9.82 10^3/uL (3.29-11.43)
[2024-09-25 08:34] LABS: HCG, Serum Qual Negative (Negative)
[2024-09-25 08:40] LABS: Alanine Aminotransferase 21 U/L (0-33); Albumin Level 4.1 g/dL (3.5-5.2); Alkaline Phosphatase 71 U/L (35-105); Anion Gap 15.9 (5-19); Aspartate Amino Transferase 15 U/L (0-32); Blood Urea Nitrogen 11 mg/dL (6-20); Calcium 8.4 mg/dL (8.5-10.5); Carbon Dioxide 24 mmol/L (22-29); Chloride 104 mmol/L (98-107); Creatinine Clr Calc Pharmacy 109.5513; Globulin 2.9 g/dL (1.3-4.6); Glomerular Filtration Rate 81.6 mL/min (90-130); Glucose 131 mg/dL (65-115); Osmolality Calculated 289 mOsm/kg (285-295); Potassium 4.9 mmol/L (3.5-5.1); Sodium 139 mmol/L (136-145); Total Bilirubin 0.2 mg/dL (0.15-1.2)
[2024-09-25] MEDS: iohexol 350 mg/mL 500 mL Btl (per mL) IV (08:57)
[2024-09-25 09:36] VITALS: BP 119/80; PULSE 63; RESP 16; O2SAT 98
[2024-09-25 09:43] LABS: Bilirubin Urine Negative (Negative); Blood Urine 3+ (Negative); Glucose Urine UA Negative (Normal); Ketones Urine Negative (Negative); Leukocyte Esterase Urine Negative (Negative); Nitrate Urine Negative (Negative); Protein Urine Trace (Negative); Urine Appearance Clear (CLEAR); Urine Color Yellow (Yellow); Urobilinogen Urine 0.2 mg/dL (Negative); pH Urine 5.5 (5-7)
[2024-09-25 09:45] LABS: Add Urine Microscopic? YES; Bacteria Urine None Seen /hpf; RBC Urine >100 /hpf (0-2); Squamous Epithelial Cell Urine 0-5 /hpf (0-5); WBC Urine 0-5 /hpf (0-5)
[2024-09-25 09:49] LABS: Add Urine Culture? Yes; Specific Gravity, Urine 1.071 (1.005-1.030)
[2024-09-25 10:16] VITALS: BP 96/60; PULSE 84; RESP 16; O2SAT 97
== END 2024-09-25 10:18 | disposition home or self-care (01) ==
PROVIDERS: Emergency Provider Physician Assistant; PCP Nurse Practitioner Family
DX: K52.9 Noninfective gastroenteritis and colitis, unspecified (principal); F17.210 Nicotine dependence, cigarettes, uncomplicated
CPT/HCPCS: 74177; 80053; 81001; 84703; 85025; 87086; 99285

== ENCOUNTER → 2024-12-22 14:50 | Outpatient (BNVA) | payer MEDICAID, SELFPAY | PROVIDERS: PCP Nurse Practitioner Family; Visit Provider Nurse Practitioner | DX: R05.9 Cough, unspecified (principal); R50.9 Fever, unspecified; R09.89 Other specified symptoms and signs involving the circulatory and respiratory systems; R06.2 Wheezing; R91.8 Other nonspecific abnormal finding of lung field | CPT/HCPCS: 71046; 87400; 87426 ==

== ENCOUNTER → 2025-08-29 14:12 | Outpatient (BNVA) | payer MEDICAID, SELFPAY | PROVIDERS: PCP Nurse Practitioner Family; Visit Provider Emergency Medicine | DX: J06.9 Acute upper respiratory infection, unspecified (principal); J02.9 Acute pharyngitis, unspecified | CPT/HCPCS: 87070; 87071; 87400; 87426; 87880 ==